=== PATIENT | male | born 1980 | race Caucasian/White ===

== ENCOUNTER → 2018-11-24 | Outpatient (CLI) | payer MEDICARE, OTHER ==
[~2018-11-24] MED LIST: BACLOFEN10 MG PO; CINNAMON500 MG PO; COLACE100 MG PO; CRANBERRY200 MG PO; DIAMOX PO; FLOMAX0.4 MG PO; GLIPIZIDE5 MG PO; JANUVIA100 MG PO; MILK OF MA2400 MG/10 PO; OXYBUTYNIN CHLOR5 MG PO; POTASSIUM CHLO10 ME1 PO; XANAX0.25 MG PO
--- NOTE | 2018-11-24 17:47 | Diagnostic Imaging Report ---
Exam: KUB. Clinical History: Calculus of kidney Comparison: None Findings: Frontal view of the abdomen demonstrates a nonobstructive bowel gas pattern with moderate retained stool. Left ureteral catheter. Numerous stones over the left kidney.No acute bone abnormality. Impression: Left ureteral catheter. Numerous stones over the left kidney Signed by: Dr. Konstantin Kimball M.D. on 11/24/2018 5:44 PM
== END ==
LOC: RAD 17:02
PROVIDERS: ATTEND Urology
DX: N20.0 Calculus of kidney (principal)
CPT/HCPCS: 74018

== ENCOUNTER → 2018-11-30 | Day surgery (SDC) | payer OTHER ==
[2018-11-28 14:45] LABS: BASOPHILS % 0.6 % (0.0-1.0); EOSINOPHILS # (AUTO) 0.1 (0.0-0.4); EOSINOPHILS % 1.4 % (0.0-6.0); HEMATOCRIT 48.9 % (38.2-49.6); HEMOGLOBIN 15.3 g/dL (14.0-18.0); LYMPHOCYTES # (AUTO) 1.6 (1.0-3.2); LYMPHOCYTES % 25.6 % (18.0-39.1); MEAN CORPUSCULAR HGB CONC 31.3 g/dL (31-35); MEAN CORPUSCULAR VOLUME 83.2 fL (81-99); MONOCYTES # (AUTO) 0.5 (0.2-0.8); MONOCYTES % 8.1 % (4.4-11.3); NEUTROPHILS # (AUTO) 4.1 (2.1-6.9); PLATELET COUNT 219 x10e3/uL (140-360); RED BLOOD COUNT 5.88 x10e6/uL (4.3-5.7); RED CELL DISTRIBUTION WIDTH 14.8 % (11.7-14.4)
[2018-11-28 15:03] LABS: ANION GAP 11.7 mmol/L (8-16); CALCIUM 9.6 mg/dL (8.4-10.2); CREATININE, SERUM 1.36 mg/dL (0.72-1.25); POTASSIUM 3.7 mmol/L (3.5-5.1)
--- NOTE | 2018-11-28 16:15 | Diagnostic Imaging Report ---
Exam: KUB-3 views Clinical History: Pre-op. Comparison: KUB 11/24/2018. Findings: Nonobstructive bowel gas pattern. Left internal ureteral stent overlying the left kidney proximally and the bladder distally. Numerous stones over the left kidney, unchanged from radiograph on 11/24/2018. The largest stone overlying the left mid kidney measures up to 1.3 cm. The largest conglomerate of stones overlying the left lower kidney measure up to 1.7 cm. Surgical clips project over the right upper quadrant. No acute osseous abnormality. Impression: Left internal ureteral stent with similar appearance of numerous left renal stones. Signed by: Dr. Radha Rivera MD on 11/28/2018 4:12 PM
[2018-11-28 20:36] LABS: PLATELET ESTIMATE ADEQUATE; PLATELET MORPHOLOGY COMMENT NORMAL; RBC MORPHOLOGY COMMENT NORMAL
[~2018-11-30] MED LIST changes: +BELLADONNA/OPIUM 60 MG SUPP PR ONE; +CEFTRIAXONE SOD 1 GM/NS 50 ML 50 ML IV ONE; +FENTANYL CITRATE/PF 100MCG/2 ML INJ ONE; +GENTAMICIN 80MG/NS 100 ML 200 ML IV ONE; +IOPAMIDOL 610MG/1ML 300 MG/ML VIAL IV ONE; +MIDAZOLAM HCL 2 MG/2 ML VIAL ONE; +ONDANSETRON HCL INJ 2MG/ML 2ML 2 MG/ML VIAL ONE; +PIPER-TAZ 3.375 GM 50 ML ONE; +SEVOFLURANE INHAL SOLN 250 ML PEN BTL ONE
--- OUTSIDE RECORDS SUMMARY | 2018-11-30 06:59 | XMS REPORT ---
[facility] Address Unknown Phone Unavailable Care Team Providers Care Custody Officer Name Role Phone YELENA GOINS Unavailable Unavailable Problems This patient has no known problems. Allergies, Adverse Reactions, Alerts This patient has no known allergies or adverse reactions. Medications This patient has no known medications. Results Test Description Test Time Test Comments Text Results Atomic Results Result Comments ABDOMEN-1VIEW (KUB) 2018-11-28 16:08:00 [place] [address] Patient Name: ILYA GANDHI MR #: [id number] : 1980 Age/Sex: 38/M Req #: [id number] Adm Physician: Ordered by: YELENA GOINS MD Report #: [id number] Location: OR Room/Bed: Procedure: [id number] DX/ABDOMEN-1VIEW (KUB) Exam Date: 11/28/18 Exam Time: 1454 REPORT STATUS: Signed Exam: KUB-3 views Clinical History: Pre-op. Comparison: KUB 11/24/2018. Findings: Nonobstructive bowel gas pattern. Left internal ureteral stent overlying the left kidney proximally and the bladder distally. Numerous stones over the left kidney, unchanged from radiograph on 11/24/2018. The largest stone overlying the left mid kidney measures up to 1.3 cm. The largest conglomerate of stones overlying the left lower kidney measure up to 1.7 cm. Surgical clips project over the right upper quadrant. No acute osseous abnormality. Impression: Left internal ureteral stent with similar appearance of numerous left renal stones. Signed by: Dr. Tello Ragsdale MD on 11/28/2018 4:12 PM Dictated By: TELLO RAGSDALE MD 11 Transcribed By: BIBIANA on 11/28/181611 COPY TO: YELENA GOINS MD ABDOMEN-1VIEW (KUB) 2018-11-24 17:43:00 [place] [address] Patient Name: ILYA GANDHI MR #: [id number] : 1980 Age/Sex: 38/M Req #: [id number] Adm Physician: Ordered by: YELENA GOINS MD Report #: [id number] Location: [facility] Room/Bed: Procedure: [id number] DX/ABDOMEN-1VIEW (KUB) Exam Date: Exam Time: REPORT STATUS: Signed Exam: KUB. Clinical History: Calculus of kidney Compariso n: None Findings: Frontal view of the abdomen demonstrates a nonobstructive bowel gas pattern with moderate retained stool. Left ureteral catheter. Numerous stones over the left kidney.No acute bone abnormality. Impression: Left ureteral catheter. Numerous stones over the left kidney Signed by: Dr. Konstantin Kimball M.D. on 11/24/2018 5:44 PM Dictated By: KONSTANTIN KIMBALL MD, MD 43 Transcribed By: BIBIANA on 11/24/181743 COPY TO: YELENA GOINS MD
[2018-11-30 13:35] VITALS: BP 105/59
--- NOTE | 2018-12-29 07:06 | Operative Report ---
DATE OF PROCEDURE: 11/30/2018 SURGEON: Edgar Dangelo MD PREOPERATIVE DIAGNOSES: 1. Left nephrolithiasis. 2. Left hydronephrosis. 3. Left indwelling ureteral stent. 4. Urinary tract infections. POSTOPERATIVE DIAGNOSES: 1. Left nephrolithiasis. 2. Left hydronephrosis. 3. Left indwelling ureteral stent. 4. Urinary tract infections. 5. Bladder stone. OPERATION PERFORMED: 1. Left-sided extracorporeal shockwave lithotripsy (separate procedure performed for left nephrolithiasis). 2. Cystourethroscopy with cystolitholapaxy (separate procedure performed for the bladder stone). 3. Cystourethroscopy with complicated removal of left indwelling ureteral stent (separate procedure performed for diagnosis of the stent). 4. Cystolitholapaxy (separate procedure performed for the cystolithiasis). 5. Cystourethroscopy with bilateral ureteral catheterization and retrograde ureteropyelography (separate procedure performed to assess the upper tracts in light of the urinary tract infections). 6. Interpretation of retrograde ureteropyelography. 7. Supervision of fluoroscopy, no radiologist present. ANESTHESIA: General. COMPLICATIONS: None. CLINICAL SUMMARY: Arturo Medina is a 38-year-old man with a chronic and indwelling ureteral stent that is retained. The patient is brought for the above procedures. He is aware of the risks of bleeding, infection, injury to adjacent structures, need for additional procedures and elected to proceed. OPERATIVE PROCEDURE IN DETAIL: Informed consent was verified. Arturo Medina was properly identified, taken to the operating room, placed on the lithotripsy table in supine position. Anesthesia was uneventfully begun. The patient's 12 mm left mid calyceal stone was localized with the above plan of fluoroscopy. Total 3000 shocks were delivered with excellent fragmentation. The patient was then carefully and gently repositioned in dorsal lithotomy position with all pressure points well padded. His genitalia were prepped and draped in usual sterile fashion. The cystoscope sheath with the visual obturator in place was atraumatically inserted in the patient's urethra was guided down the relatively unremarkable urethra through the normal prostate bed into the patient's bladder, where we identified a stent emerging from the left ureteral orifice. The stent was heavily encrusted and essentially was the seed for a bladder stone. We utilized the forceps to progressively crush this down in order to completely dislodge it. We grasped the stent and extracted it following placement of a guidewire along side of it. A ureteral catheter was used to cannulate the left ureter and retrograde ureteropyelography was performed, it was inserted in the right ureter and retrograde ureteropyelograms were performed. With cystoscopic and fluoroscopic guidance, a new left-sided indwelling ureteral stent was then placed. It was coiled in the patient's kidney as well as the patient's bladder. The retaining suture was cut short. Interpretation of retrograde ureteropyelography: Contrast was instilled in retrograde fashion bilaterally. Right side was relatively unremarkable. There were no tumors, no stones were visualized. Unobstructed drainage was observed fluoroscopically. The left hand side exhibited chronic hydronephrosis with some calyceal blunting. The new stent was in excellent position "the patient's kidney as well as the patient's bladder." The patient's bladder was drained. Cystoscope was withdrawn. Belladonna and opium suppository were placed revealing a small prostate, smooth, and non-fluctuant without any nodules. The patient was uneventfully reversed from anesthesia and taken to the recovery room in stable condition. Plans will be to follow the patient up as well as performed at a later time. Left ureteroscopy with holmium laser standby. Hopefully, we will be able to render the patient's stenting in the near future. MD FRANCISCO Mustafa/FOREST /[id number]
== END | disposition home or self-care (01) ==
LOC: OR 06:57
PROVIDERS: ATTEND Urology
DX: N20.0 Calculus of kidney (principal); N21.0 Calculus in bladder; N13.30 Unspecified hydronephrosis; Z46.6 Encounter for fitting and adjustment of urinary device; R35.1 Nocturia; N39.0 Urinary tract infection, site not specified; E11.22 Type 2 diabetes mellitus with diabetic chronic kidney disease; N18.9 Chronic kidney disease, unspecified; R56.9 Unspecified convulsions; K21.9 Gastro-esophageal reflux disease without esophagitis; F41.9 Anxiety disorder, unspecified; Z88.6 Allergy status to analgesic agent; Z88.8 Allergy status to other drugs, medicaments and biological substances; Z01.810 Encounter for preprocedural cardiovascular examination; Z01.812 Encounter for preprocedural laboratory examination; Z79.84 Long term (current) use of oral hypoglycemic drugs; Z84.1 Family history of disorders of kidney and ureter
CPT/HCPCS: 36415 ×2; 50590; 52317; 52332; 74018; 80048; 82948; 83970; 84550; 85025; 87086; 93005; C1758; C2617; J0696; J1580; J2250; J2405; J2543; Q9967

== ENCOUNTER → 2019-02-03 | Day surgery (SDC) | payer MEDICARE, OTHER ==
[2019-02-02 16:25] LABS: ANION GAP 13.2 mmol/L (8-16); BLOOD UREA NITROGEN 22 mg/dL (7-26); BUN/CREATININE RATIO 20 (6-25); CALCIUM 9.1 mg/dL (8.4-10.2); CARBON DIOXIDE 17 mmol/L (22-29); CHLORIDE 107 mmol/L (98-107); CREATININE, SERUM 1.09 mg/dL (0.72-1.25); EST GLOMERULAR FILTRATION RATE > 60 ML/MIN (60-); GLUCOSE 130 mg/dL (74-118); POTASSIUM 4.2 mmol/L (3.5-5.1); SODIUM 133 mmol/L (136-145)
--- NOTE | 2019-02-02 16:48 | Diagnostic Imaging Report ---
Exam: KUB; 2 views History: Stones Comparison: 11/28/2008 Findings: Left ureteral stent is present. There is staghorn calculus in the left kidney. There has been progression of stone formation compared to the prior study. Small stone in the upper pole is also seen on the left. Degenerative changes of both hips is present. Impression: Left staghorn calculi. Signed by: Dr. Clark Dobson DO on 02/02/2019 4:44 PM
[~2019-02-03] MED LIST changes: +ACETAMINOPHEN 1000 MG/100 ML 100 ML IV ONE; +ACETAMINOPHEN/CODEINE 300MG - 30MG TAB ONE; +B&O 60MG R/S 60 MG SUPP PR ONE; -BELLADONNA/OPIUM 60 MG SUPP PR ONE; +GENTAMICIN 80MG/NS 100 ML 100 ML IV ONE; -GENTAMICIN 80MG/NS 100 ML 200 ML IV ONE; +LIDOCAINE HCL 2% LOCAL INJ 5 ML SDV VIAL INJ ONE; +MEPERIDINE HCL INJ 25 MG/ML VIAL ONE; -PIPER-TAZ 3.375 GM 50 ML ONE; +PROPOFOL IV EMULSION 10 MG/ML 20 ML VIAL ONE; +TIZANIDINE HCL4 M1 PO; +ULTRAM50 MG PO
--- OUTSIDE RECORDS SUMMARY | 2019-02-03 09:50 | XMS REPORT | Clinical Summary ---
Author Author [facility] Organization [facility] Address Unknown Phone Unavailable Care Team Providers Care Security Installer Name Role Phone Katie Palm DO PCP Allergies Comments Active Allergy Reactions Severity Noted Date Morphine Anxiety Low 12/30/2016 Digestive system shuts down Propofol Other (See High 10/31/2016 Comments) Medications End Date Status Medication Sig Dispensed Refills Start Date Active ALPRAZolam (XANAX) 0.25 Take 0.5 mg 0 MG tablet by mouth 7 nightly. Active glipiZIDE (GLUCOTROL) 5 Take 5 mg by 0 MG tablet mouth 2 (two) times a day before meals. Active oxybutynin (DITROPAN) 5 Take 5 mg by 0 MG tablet mouth 2 (two) times a day. Active pantoprazole (PROTONIX) Take 40 mg by 0 40 MG EC tablet mouth daily before breakfast. Active tamsulosin (FLOMAX) 0.4 Take 0.4 mg 0 mg capsule,extended by mouth 2 release 24hr (two) times a day. 30 minutes after breakfast. Active cholecalciferol, vitamin Take 5,000 0 D3, (VITAMIN D3) 5,000 Units by unit tablet mouth every morning. Active montelukast (SINGULAIR) Take 10 mg by 4 10 mg tablet mouth daily 8 as needed. Active fluticasone (FLONASE) 50 1 spray by 7 mcg/actuation nasal spray Each Nare 8 route daily. Active acetaZOLAMIDE (DIAMOX Take 500 mg 0 SEQUELS) 500 mg capsule by mouth 2 (two) times a day. Active sitaGLIPtin (JANUVIA) 50 Take 50 mg by 0 MG tablet mouth daily. Active tiZANidine (ZANAFLEX) 4 Take 4 mg by 0 MG tablet mouth every 6 (six) hours as needed for muscle spasms. Active potassium chloride Take 20 mEq 0 (KLOR-CON) 20 mEq packet by mouth 2 (two) times a day. Active traMADol (ULTRAM) 50 mg Take 50 mg by 0 tablet mouth every 4 9 (four) hours as needed. Active docusate sodium (COLACE) Take 100 mg 0 100 MG capsule by mouth 2 (two) times a day. 01/27/2019 Discontinued baclofen (LIORESAL) 20 MG Take 20 mg by 0 tablet mouth 2 (two) times a day. 04/20/2018 Discontinued acetaZOLAMIDE (DIAMOX) Take 500 mg 0 500 mg capsule by mouth 2 (two) times a day. 01/27/2019 Discontinued POTASSIUM CITRATE ORAL Take 1,620 mg 0 by mouth 3 (three) times a day. PATIENT BROUGHT OWN HOME MED 01/27/2019 Discontinued acetaminophen-codeine Take 1 tablet 0 (TYLENOL WITH CODEINE #3) by mouth 300-30 mg per tablet every 4 (four) hours as needed for moderate pain. 04/16/2018 benzonatate (TESSALON) Take 1 21 capsule 0 100 MG capsule capsule (100 8 mg total) by mouth every 8 (eight) hours for 5 days. 04/18/2018 nitrofurantoin, Take 1 14 capsule 0 macrocrystal-monohydrate, capsule (100 8 (MACROBID) 100 MG capsule mg total) by mouth 2 (two) times a day for 7 days. 06/06/2018 vancomycin (VANCOCIN) 125 Take 1 112 capsule 0 MG capsule capsule (125 8 mg total) by mouth 4 (four) times a day for 28 days. 09/23/2018 L. Take 1 30 capsule 0 acidophilus,casei,rhamnos capsule by 9 us (BIO K PLUS) 50 mouth daily billion cell for 30 days. capsule,delayed release(DR/EC) capsule 09/23/2018 potassium chloride Take 1 tablet 60 tablet 0 (K-DUR) 20 MEQ CR tablet (20 mEq 9 total) by mouth 2 (two) times a day for 30 days. Active Problems Problem Noted Date Complicated UTI (urinary tract infection) 01/29/2019 Complicated urinary tract infection 01/27/2019 Intestinal malrotation 05/02/2018 Constipation 04/24/2018 SBO (small bowel obstruction) 04/21/2018 Dehydration 04/20/2018 Diarrhea of infectious origin 10/28/2017 Urinary tract infection without hematuria 10/27/2017 Seizures 04/16/2017 Overview: AT AGE 1-NONE SINCE Cerebral palsy 04/16/2017 GERD (gastroesophageal reflux disease) 04/16/2017 Colitis, acute 04/15/2017 Diabetes mellitus 01/30/2017 Hypokalemia 01/30/2017 Colitis 01/23/2017 C. 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 Transcribe Access Orders Akira Garcia MD Al-Lahiq, Maha, MD Teqwimuah, Remy, DO Dehydration (Primary Dx); Intractable vomiting with nausea, unspecified vomiting type; Right sided abdominal pain; Hypokalemia; Hyperglycemia; Physical debility; Partial small bowel obstruction (HCC); Urinary tract infection with hematuria, site unspecified; SBO (small bowel obstruction) (HCC) 08/13/2018 [facility] General Internal Medicine - Encounter 08/24/2018 08/13/2018 Travel Marcus Harris MD 05/09/2018 Anesthesia General Surgery Event Gabriel Lee MD 05/06/2018 Telephone Urology Kalpana Graff MD Al-Lahiq, Maha, MD Teqwimuah, Remy, DO Intestinal malrotation (Primary Dx); Acute cystitis without hematuria; C. difficile colitis 05/01/2018 [facility] General Internal Medicine - Encounter 05/09/2018 Arturo Maharaj MD Al-Lahiq, Maha, MD Teqwimuah, Remy, DO Dehydration (Primary Dx); C. difficile colitis; Urinary tract infection with hematuria, site unspecified 04/19/2018 [facility] General Internal Medicine - Encounter 04/25/2018 Michi Berg MD Urinary tract infection without hematuria, site unspecified (Primary Dx); Cough 04/11/2018 Emergency Emergency Medicine after 02/02/2018 Family History Medical History Relation Name Comments Diabetes Father Diabetes Mother Hyperlipidemia Mother Hypertension Mother Glaucoma Sister Sarcoidosis Sister Drug abuse Sister Relation Name Status Comments Father Mother Alive Sister Alive Sister Alive Social History Date Tobacco Use Types Packs/Day Years Used Never Smoker Smokeless Tobacco: Never Used Alcohol Use Drinks/Week oz/Week Comments Defer Sex Assigned at Date Recorded Not on file Industry Job Start Date Occupation Not on file Not on file Not on file Travel End Travel History Travel Start No recent travel history available. Last Filed Vital Signs Time Taken Vital Sign Reading 01/30/2019 3:16 PM CDT Blood Pressure 112/57 01/30/2019 3:16 PM CDT Pulse 81 01/30/2019 3:16 PM CDT Temperature 36.9 C (98.5 F) 01/30/2019 3:16 PM CDT Respiratory Rate 19 01/30/2019 3:16 PM CDT Oxygen Saturation 94% - Inhaled Oxygen - Concentration 01/28/2019 2:10 AM CDT Weight 65.8 kg (145 lb) 01/28/2019 2:10 AM CDT Height 154.9 cm (5' 1") 01/28/2019 2:10 AM CDT Body Mass Index 27.4 Plan of Treatment Health Maintenance Due Date Last Done Comments DIABETIC RETINAL EYE EXAM 1978 DIABETIC FOOT EXAM 1988 URINE MICROALBUMIN 1988 INFLUENZA VACCINE 03/23/2019 Implants Device Identifier Shelf Expiration Date Model / Serial / Lot Implanted Type Area Manufactur [id number] / / Catheter Uretl 5fr 70cm Opn-End Cardiovasc Left: Ureter, COOK Flx-Tp Std - [id number] ular [employer] UROLOGICAL Implanted: Qty: 1 on 11/03/2016 by Implants DeseanLuis Daniel MD Stent-10/21/2016 Stent Urethra Implanted: 10/21/2016 (Quantity not on file) 07/24/2019 [facility] 626 R / / [id number] Stent Uretl Unvrsa 6fr 26cm Urological Left: Ureter, COOK Hydrphlc W/O Gw - [id number] Implants [employer] UROLOGICAL Implanted: Qty: 1 on 11/03/2016 by or Sets Desean, Luis Daniel Morris MD Procedures Comments Procedure Name Priority Date/Time Associated Diagnosis POC GLUCOSE Routine 01/30/2019 4:25 PM CDT POC GLUCOSE Routine 01/30/2019 11:19 AM CDT POC GLUCOSE Routine 01/30/2019 5:49 AM CDT LACTIC ACID LEVEL Routine 01/30/2019 5:02 AM CDT ESTIMATED GFR Routine 01/30/2019 5:02 AM CDT BASIC METABOLIC PANEL Routine 01/30/2019 5:02 AM CDT HC COMPLETE BLD COUNT Routine 01/30/2019 W/AUTO DIFF 5:02 AM CDT POC GLUCOSE Routine 01/29/2019 8:28 PM CDT POC GLUCOSE Routine 01/29/2019 5:[address] RENAL STONE PROTOCOL Routine 01/29/2019 4:58 PM CDT POC GLUCOSE Routine 01/29/2019 11:45 AM CDT POC GLUCOSE Routine 01/29/2019 5:34 AM CDT POC GLUCOSE Routine 01/28/2019 8:27 PM CDT POC GLUCOSE Routine 01/28/2019 4:29 PM CDT POC GLUCOSE Routine 01/28/2019 10:08 AM CDT SMEAR REVIEW Routine 01/28/2019 6:50 AM CDT ESTIMATED GFR Routine 01/28/2019 6:50 AM CDT COMPREHENSIVE METABOLIC Routine 01/28/2019 PANEL 6:50 AM CDT HC COMPLETE BLD COUNT Routine 01/28/2019 W/AUTO DIFF 6:50 AM CDT LACTIC ACID LEVEL, SEPSIS Timed 01/28/2019 - NOW AND REPEAT 2X EVERY 6:50 AM CDT 3 HOURS POC GLUCOSE Routine 01/28/2019 5:37 AM CDT LACTIC ACID LEVEL, SEPSIS Timed 01/28/2019 - NOW AND REPEAT 2X EVERY 2:35 AM CDT 3 HOURS POC GLUCOSE Routine 01/27/2019 11:55 PM CDT GRAM STAIN STAT 01/27/2019 9:44 PM CDT URINE CULTURE STAT 01/27/2019 9:44 PM CDT SMEAR REVIEW STAT 01/27/2019 9:30 PM CDT ESTIMATED GFR STAT 01/27/2019 9:30 PM CDT LACTIC ACID LEVEL, SEPSIS Timed 01/27/2019 - NOW AND REPEAT 2X EVERY 9:30 PM CDT 3 HOURS URINALYSIS SCREEN AND STAT 01/27/2019 MICROSCOPY, WITH REFLEX 9:30 PM CDT TO CULTURE COMPREHENSIVE METABOLIC STAT 01/27/2019 PANEL 9:30 PM CDT PARTIAL THROMBOPLASTIN STAT 01/27/2019 TIME (PTT) 9:30 PM CDT PROTHROMBIN TIME WITH INR STAT 01/27/2019 9:30 PM CDT HC COMPLETE BLD COUNT STAT 01/27/2019 W/AUTO DIFF 9:30 PM CDT XR CHEST 1 VW PORTABLE STAT 01/27/2019 8:53 PM CDT POC GLUCOSE Routine 08/24/2018 11:59 AM GRADER MARKER POC GLUCOSE Routine 08/24/2018 6:27 AM GRADER MARKER ESTIMATED GFR Routine 08/24/2018 4:52 AM GRADER MARKER RENAL FUNCTION PANEL Routine 08/24/2018 4:52 AM GRADER MARKER POC GLUCOSE Routine 08/23/2018 7:36 PM GRADER MARKER POC GLUCOSE Routine 08/23/2018 4:27 PM GRADER MARKER POC GLUCOSE Routine 08/23/2018 11:31 AM GRADER MARKER POC GLUCOSE Routine 08/23/2018 5:42 AM GRADER MARKER ESTIMATED GFR Routine 08/23/2018 5:30 AM GRADER MARKER BASIC METABOLIC PANEL Routine 08/23/2018 5:30 AM GRADER MARKER HC COMPLETE BLD COUNT Routine 08/23/2018 W/AUTO DIFF 5:30 AM GRADER MARKER POC GLUCOSE Routine 08/22/2018 7:50 PM GRADER MARKER POC GLUCOSE Routine 08/22/2018 4:38 PM GRADER MARKER POC GLUCOSE Routine 08/22/2018 12:23 PM GRADER MARKER POC GLUCOSE Routine 08/22/2018 5:57 AM GRADER MARKER POC GLUCOSE Routine 08/21/2018 7:35 PM GRADER MARKER POC GLUCOSE Routine 08/21/2018 4:29 PM GRADER MARKER POTASSIUM LEVEL Routine 08/21/2018 3:03 PM GRADER MARKER POC GLUCOSE Routine 08/21/2018 11:03 AM GRADER MARKER ESTIMATED GFR Routine 08/21/2018 6:42 AM GRADER MARKER BASIC METABOLIC PANEL Routine 08/21/2018 6:42 AM GRADER MARKER POC GLUCOSE Routine 08/21/2018 6:03 AM GRADER MARKER POC GLUCOSE Routine 08/20/2018 7:45 PM GRADER MARKER POC GLUCOSE Routine 08/20/2018 4:38 PM GRADER MARKER POC GLUCOSE Routine 08/20/2018 11:35 AM GRADER MARKER POC GLUCOSE Routine 08/20/2018 5:34 AM GRADER MARKER ESTIMATED GFR Routine 08/20/2018 4:55 AM GRADER MARKER BASIC METABOLIC PANEL Routine 08/20/2018 4:55 AM GRADER MARKER POC GLUCOSE Routine 08/19/2018 8:12 PM GRADER MARKER POC GLUCOSE Routine 08/19/2018 5:24 PM GRADER MARKER CLOSTRIDIUM DIFFICILE Routine 08/19/2018 TOXIN 12:23 PM GRADER MARKER POC GLUCOSE Routine 08/19/2018 11:06 AM GRADER MARKER POC GLUCOSE Routine 08/19/2018 5:31 AM GRADER MARKER ESTIMATED GFR Routine 08/19/2018 4:15 AM GRADER MARKER BASIC METABOLIC PANEL Routine 08/19/2018 4:15 AM GRADER MARKER POC GLUCOSE Routine 08/18/2018 10:46 PM GRADER MARKER FL SMALL BOWEL Routine 08/18/2018 10:45 PM GRADER MARKER POC GLUCOSE Routine 08/18/2018 4:34 PM GRADER MARKER POC GLUCOSE Routine 08/18/2018 11:30 AM GRADER MARKER POC GLUCOSE Routine 08/18/2018 5:55 AM GRADER MARKER ESTIMATED GFR Routine 08/18/2018 5:16 AM GRADER MARKER MAGNESIUM LEVEL Routine 08/18/2018 5:16 AM GRADER MARKER PHOSPHORUS LEVEL Routine 08/18/2018 5:16 AM GRADER MARKER COMPREHENSIVE METABOLIC Routine 08/18/2018 PANEL 5:16 AM GRADER MARKER HC COMPLETE BLD COUNT Routine 08/18/2018 W/AUTO DIFF 5:16 AM GRADER MARKER POC GLUCOSE Routine 08/17/2018 7:44 PM GRADER MARKER POC GLUCOSE Routine 08/17/2018 5:17 PM GRADER MARKER POC GLUCOSE Routine 08/17/2018 11:49 AM GRADER MARKER POC GLUCOSE Routine 08/17/2018 6:03 AM GRADER MARKER POC GLUCOSE Routine 08/16/2018 7:34 PM GRADER MARKER POC GLUCOSE Routine 08/16/2018 5:19 PM GRADER MARKER XR ABDOMEN 1 VW PORTABLE STAT 08/16/2018 1:57 PM GRADER MARKER POC GLUCOSE Routine 08/16/2018 11:19 AM GRADER MARKER ESTIMATED GFR Routine 08/16/2018 7:20 AM GRADER MARKER BASIC METABOLIC PANEL Routine 08/16/2018 7:20 AM GRADER MARKER HC COMPLETE BLD COUNT Routine 08/16/2018 W/AUTO DIFF 7:20 AM GRADER MARKER POC GLUCOSE Routine 08/16/2018 7:05 AM GRADER MARKER POC GLUCOSE Routine 08/16/2018 5:57 AM GRADER MARKER POC GLUCOSE Routine 08/16/2018 12:12 AM GRADER MARKER POC GLUCOSE Routine 08/15/2018 6:30 PM GRADER MARKER ESTIMATED GFR Routine 08/15/2018 3:55 PM GRADER MARKER COMPREHENSIVE METABOLIC Routine 08/15/2018 PANEL 3:55 PM GRADER MARKER POC GLUCOSE Routine 08/15/2018 11:34 AM GRADER MARKER XR ABDOMEN 1 VW STAT 08/15/2018 6:10 AM GRADER MARKER POC GLUCOSE Routine 08/15/2018 5:59 AM GRADER MARKER POC GLUCOSE Routine 08/15/2018 1:18 AM GRADER MARKER POC GLUCOSE Routine 08/14/2018 6:29 PM GRADER MARKER XR CHEST 1 VW PORTABLE STAT 08/14/2018 1:55 PM GRADER MARKER POC GLUCOSE Routine 08/14/2018 12:57 PM GRADER MARKER LACTIC ACID LEVEL, SEPSIS Timed 08/14/2018 - NOW AND REPEAT 2X EVERY 11:00 AM GRADER MARKER 3 HOURS BLOOD CULTURE, AEROBIC & Routine 08/14/2018 ANAEROBIC 11:00 AM GRADER MARKER OCCULT BLOOD, GASTRIC Routine 08/14/2018 10:00 AM GRADER MARKER BLOOD CULTURE, AEROBIC & Routine 08/14/2018 ANAEROBIC 7:45 AM GRADER MARKER LACTIC ACID LEVEL, SEPSIS Timed 08/14/2018 - NOW AND REPEAT 2X EVERY 7:20 AM GRADER MARKER 3 HOURS ESTIMATED GFR Routine 08/14/2018 6:06 AM GRADER MARKER COMPREHENSIVE METABOLIC Routine 08/14/2018 PANEL 6:06 AM GRADER MARKER HC COMPLETE BLD COUNT Routine 08/14/2018 W/AUTO DIFF 6:06 AM GRADER MARKER LACTIC ACID LEVEL, SEPSIS Timed 08/14/2018 - NOW AND REPEAT 2X EVERY 1:16 AM GRADER MARKER 3 HOURS BLOOD CULTURE, AEROBIC & Routine 08/14/2018 ANAEROBIC 1:16 AM GRADER MARKER RESPIRATORY PATHOGEN Routine 08/14/2018 PANEL 12:37 AM GRADER MARKER INFLUENZA ANTIGEN TEST, Routine 08/14/2018 REFLEX NEGATIVE TO RPP 12:37 AM GRADER MARKER ECG 12-LEAD STAT 08/14/2018 12:06 AM GRADER MARKER B NATRIURETIC PEPTIDE Routine 08/14/2018 12:00 AM GRADER MARKER HC COMPLETE BLD COUNT Routine 08/14/2018 W/AUTO DIFF 12:00 AM GRADER MARKER PROTHROMBIN TIME WITH INR Routine 08/14/2018 12:00 AM GRADER MARKER PARTIAL THROMBOPLASTIN Routine 08/14/2018 TIME (PTT) 12:00 AM GRADER MARKER ESTIMATED GFR STAT 08/13/2018 11:38 PM GRADER MARKER CREATINE KINASE, TOTAL STAT 08/13/2018 (CPK) 11:38 PM GRADER MARKER TROPONIN STAT 08/13/2018 11:38 PM GRADER MARKER LIPASE LEVEL STAT 08/13/2018 11:38 PM GRADER MARKER MAGNESIUM LEVEL STAT 08/13/2018 11:38 PM GRADER MARKER PHOSPHORUS LEVEL STAT 08/13/2018 11:38 PM GRADER MARKER COMPREHENSIVE METABOLIC STAT 08/13/2018 PANEL 11:38 PM GRADER MARKER GRAM STAIN STAT 08/13/2018 11:38 PM GRADER MARKER URINE CULTURE STAT 08/13/2018 11:38 PM GRADER MARKER URINALYSIS SCREEN AND STAT 08/13/2018 MICROSCOPY, WITH REFLEX 11:14 PM GRADER MARKER TO CULTURE CT ABDOMEN PELVIS WO STAT 08/13/2018 CONTRAST 10:44 PM GRADER MARKER XR CHEST 1 VW PORTABLE STAT 08/13/2018 10:23 PM GRADER MARKER ECG ED PRELIMINARY Routine 08/13/2018 INTERPRETATION 9:46 PM GRADER MARKER ID CRITICAL CARE, E/M Routine 08/13/2018 30-74 MINUTES 9:46 PM GRADER MARKER POC GLUCOSE Routine 05/09/2018 8:51 PM CDT POC GLUCOSE Routine 05/09/2018 5:07 PM CDT POC GLUCOSE Routine 05/09/2018 12:16 PM CDT PROTHROMBIN TIME WITH INR Routine 05/09/2018 6:15 AM CDT PARTIAL THROMBOPLASTIN Routine 05/09/2018 TIME (PTT) 6:15 AM CDT ESTIMATED GFR Routine 05/09/2018 6:15 AM CDT BASIC METABOLIC PANEL Routine 05/09/2018 6:15 AM CDT POC GLUCOSE Routine 05/09/2018 5:57 AM CDT POC GLUCOSE Routine 05/08/2018 8:22 PM CDT POC GLUCOSE Routine 05/08/2018 4:28 PM CDT POC GLUCOSE Routine 05/08/2018 11:17 AM CDT POC GLUCOSE Routine 05/08/2018 5:18 AM CDT MAGNESIUM LEVEL STAT 05/08/2018 5:10 AM CDT ESTIMATED GFR Routine 05/08/2018 5:01 AM CDT BASIC METABOLIC PANEL Routine 05/08/2018 5:01 AM CDT POC GLUCOSE Routine 05/07/2018 7:56 PM CDT POC GLUCOSE Routine 05/07/2018 4:19 PM CDT POC GLUCOSE Routine 05/07/2018 11:59 AM CDT ESTIMATED GFR Routine 05/07/2018 10:19 AM CDT BASIC METABOLIC PANEL Routine 05/07/2018 10:19 AM CDT POC GLUCOSE Routine 05/07/2018 5:41 AM CDT POC GLUCOSE Routine 05/06/2018 7:56 PM CDT POC GLUCOSE Routine 05/06/2018 4:25 PM CDT PARTIAL THROMBOPLASTIN STAT 05/06/2018 TIME (PTT) 2:50 PM CDT PROTHROMBIN TIME WITH INR STAT 05/06/2018 2:50 PM CDT POC GLUCOSE Routine 05/06/2018 11:06 AM CDT POC GLUCOSE Routine 05/06/2018 5:20 AM CDT ESTIMATED GFR Routine 05/06/2018 4:23 AM CDT HC COMPLETE BLD COUNT Routine 05/06/2018 W/AUTO DIFF 4:23 AM CDT BASIC METABOLIC PANEL Routine 05/06/2018 4:23 AM CDT POC GLUCOSE Routine 05/05/2018 8:40 PM CDT POC GLUCOSE Routine 05/05/2018 4:13 PM CDT POC GLUCOSE Routine 05/05/2018 11:04 AM CDT POC GLUCOSE Routine 05/05/2018 5:07 AM CDT POC GLUCOSE Routine 05/04/2018 7:50 PM CDT POC GLUCOSE Routine 05/04/2018 4:07 PM CDT POC GLUCOSE Routine 05/04/2018 11:04 AM CDT POC GLUCOSE Routine 05/04/2018 5:42 AM CDT MAGNESIUM LEVEL Routine 05/04/2018 4:45 AM CDT ESTIMATED GFR Routine 05/04/2018 4:45 AM CDT HC COMPLETE BLD COUNT Routine 05/04/2018 W/AUTO DIFF 4:45 AM CDT BASIC METABOLIC PANEL Routine 05/04/2018 4:45 AM CDT CLOSTRIDIUM DIFFICILE Routine 05/04/2018 TOXIN 4:25 AM CDT OCCULT BLOOD, STOOL Routine 05/04/2018 4:[address] ABDOMEN PELVIS W Routine 05/03/2018 CONTRAST 10:55 PM CDT POC GLUCOSE Routine 05/03/2018 7:43 PM CDT POC GLUCOSE Routine 05/03/2018 4:09 PM CDT POC GLUCOSE Routine 05/03/2018 11:09 AM CDT POC GLUCOSE Routine 05/03/2018 5:43 AM CDT POC GLUCOSE Routine 05/02/2018 7:48 PM CDT POC GLUCOSE Routine 05/02/2018 4:23 PM CDT LACTIC ACID LEVEL Routine 05/02/2018 2:40 PM CDT POC GLUCOSE Routine 05/02/2018 11:47 AM CDT POC GLUCOSE Routine 05/02/2018 8:[address] ABDOMEN PELVIS WO STAT 05/02/2018 CONTRAST 12:46 AM CDT URINALYSIS SCREEN AND STAT 05/02/2018 MICROSCOPY, WITH REFLEX 12:00 AM CDT TO CULTURE GRAM STAIN STAT 05/02/2018 12:00 AM CDT URINE CULTURE STAT 05/02/2018 12:00 AM CDT ZZESTIMATED GFR STAT 05/01/2018 11:10 PM CDT LIPASE LEVEL STAT 05/01/2018 11:10 PM CDT AMYLASE LEVEL STAT 05/01/2018 11:10 PM CDT COMPREHENSIVE METABOLIC STAT 05/01/2018 PANEL 11:10 PM CDT HC COMPLETE BLD COUNT STAT 05/01/2018 W/AUTO DIFF 11:10 PM CDT ECG 12-LEAD Routine 05/01/2018 10:38 PM CDT ECG ED PRELIMINARY Routine 05/01/2018 INTERPRETATION 10:26 PM CDT POC GLUCOSE Routine 04/25/2018 8:14 PM CDT POC GLUCOSE Routine 04/25/2018 4:21 PM CDT POC GLUCOSE Routine 04/25/2018 11:23 AM CDT ZZESTIMATED GFR STAT 04/25/2018 11:17 AM CDT COMPREHENSIVE METABOLIC STAT 04/25/2018 PANEL 11:17 AM CDT HC COMPLETE BLD COUNT STAT 04/25/2018 W/AUTO DIFF 11:17 AM CDT POC GLUCOSE Routine 04/25/2018 5:44 AM CDT POTASSIUM LEVEL Routine 04/24/2018 11:30 PM CDT POC GLUCOSE Routine 04/24/2018 8:03 PM CDT POC GLUCOSE Routine 04/24/2018 4:57 PM CDT POC GLUCOSE Routine 04/24/2018 11:22 AM CDT POC GLUCOSE Routine 04/24/2018 6:10 AM CDT ZZESTIMATED GFR Routine 04/24/2018 4:34 AM CDT HC COMPLETE BLD COUNT Routine 04/24/2018 W/AUTO DIFF 4:34 AM CDT BASIC METABOLIC PANEL Routine 04/24/2018 4:34 AM CDT POC GLUCOSE Routine 04/23/2018 7:50 PM CDT POC GLUCOSE Routine 04/23/2018 6:27 PM CDT XR ABDOMEN 1 VW Routine 04/23/2018 5:20 PM CDT POC GLUCOSE Routine 04/23/2018 11:37 AM CDT POC GLUCOSE Routine 04/23/2018 5:51 AM CDT POC GLUCOSE Routine 04/22/2018 8:24 PM CDT NM RENAL SCAN WFLOW FUNCT STAT 04/22/2018 SGL INT W/MAG 3 8:03 PM CDT POC GLUCOSE Routine 04/22/2018 4:47 PM CDT POC GLUCOSE Routine 04/22/2018 11:25 AM CDT POC GLUCOSE Routine 04/22/2018 5:49 AM CDT ZZESTIMATED GFR Routine 04/22/2018 4:30 AM CDT HC COMPLETE BLD COUNT Routine 04/22/2018 W/AUTO DIFF 4:30 AM CDT BASIC METABOLIC PANEL Routine 04/22/2018 4:30 AM CDT POC GLUCOSE Routine 04/21/2018 8:21 PM CDT POC GLUCOSE Routine 04/21/2018 4:32 PM CDT POC GLUCOSE Routine 04/21/2018 11:56 AM CDT XR ABDOMEN 1 VW Routine 04/21/2018 10:30 AM CDT ZZESTIMATED GFR Routine 04/21/2018 8:16 AM CDT HC COMPLETE BLD COUNT STAT 04/21/2018 W/AUTO DIFF 8:16 AM CDT BASIC METABOLIC PANEL Routine 04/21/2018 8:16 AM CDT POC GLUCOSE Routine 04/21/2018 5:26 AM CDT POC GLUCOSE Routine 04/20/2018 10:08 PM CDT POC GLUCOSE Routine 04/20/2018 4:13 PM CDT POC GLUCOSE Routine 04/20/2018 11:[address] ABDOMEN PELVIS WO STAT 04/20/2018 CONTRAST 5:17 AM CDT URINALYSIS SCREEN AND STAT 04/20/2018 MICROSCOPY, WITH REFLEX 2:30 AM CDT TO CULTURE URINE CULTURE STAT 04/20/2018 2:30 AM CDT GRAM STAIN STAT 04/20/2018 2:30 AM CDT CLOSTRIDIUM DIFFICILE Routine 04/20/2018 TOXIN 12:31 AM CDT ZZESTIMATED GFR STAT 04/19/2018 11:38 PM CDT CREATINE KINASE, TOTAL STAT 04/19/2018 (CPK) 11:38 PM CDT LIPASE LEVEL STAT 04/19/2018 11:38 PM CDT HEPATIC FUNCTION PANEL STAT 04/19/2018 11:38 PM CDT BASIC METABOLIC PANEL STAT 04/19/2018 11:38 PM CDT HC COMPLETE BLD COUNT STAT 04/19/2018 W/AUTO DIFF 11:38 PM CDT XR CHEST 1 VW PORTABLE STAT 04/11/2018 3:55 AM CDT URINALYSIS SCREEN AND Routine 04/11/2018 MICROSCOPY, WITH REFLEX 3:09 AM CDT TO CULTURE GRAM STAIN Routine 04/11/2018 3:09 AM CDT URINE CULTURE Routine 04/11/2018 3:09 AM CDT after 02/02/2018 Results * POC glucose (01/30/2019 4:25 PM CDT) Only the most recent of 109 results within the time period is included. POC glucose 126 (H) 65 - 99 mg/dL [place] Comment: [employer] CLEAR Meter ID: [id number] [facility] [place] Career Development Specialist: Mango Gifford Specimen Performing Organization Address City/State/Zipcode Phone Number [facility] DEPARTMENT OF [address] [place] [address] [place] [address] [facility] [address] [place] * Estimated GFR (01/30/2019 5:02 AM CDT) Only the most recent of 18 results within the time period is included. [facility] Estimated GFR 75 mL/min/1.73 m2 [place] Comment: [facility] rpretation G1 >=90 Normal or high G2 60-89Mildly decreased [id number] Mildly to moderately decreased [id number] Moderately to severely decreased G4 15-29Severely decreased G5 <15Kidney failure The eGFR was calculated using the Chronic Kidney Disease Epidemiology Collaboration (CKD-EPI) equation. Interpretation is based on recommendations of the National Kidney Foundation-Kidney Disease Outcomes Quality Initiative (NKF-KDOQI) published in 2014. Specimen Plasma specimen Performing Organization Address City/State/Zipcode Phone Number [facility] DEPARTMENT OF [address] [place] [address] [place] [address] [facility] [id number] [place] [address] * CBC with platelet and differential (01/30/2019 5:02 AM CDT) Only the most recent of 16 results within the time period is included. [facility] WBC 5.05 4.50 - 11.00 k/uL [facility] RBC 5.31 4.40 - 6.00 m/uL [facility] HGB 13.4 (L) 14.0 - 18.0 g/dL [facility] HCT 44.5 41.0 - 51.0 % [facility] MCV 83.8 82.0 - 100.0 fL [facility] MCH 25.2 (L) 27.0 - 34.0 pg [facility] MCHC 30.1 (L) 31.0 - 37.0 g/dL [facility] RDW - SD 45.8 37.0 - 55.0 fL [facility] MPV 9.7 8.8 - 13.2 fL [facility] Platelet count 145 (L) 150 - 400 k/uL [facility] Nucleated RBC 0.00 /100 WBC [facility] Neutrophils 49.7 39.0 - 69.0 % [facility] Lymphocytes 39.2 25.0 - 45.0 % [facility] Monocytes 7.1 0.0 - 10.0 % [facility] Eosinophils 3.4 0.0 - 5.0 % [facility] Basophils 0.4 0.0 - 1.0 % [facility] Specimen Blood Performing Organization Address City/[facility] Phone Number [address] [place] [address] PATHOLOGY AND GENOMIC MEDICINE [address] * Lactic acid level (01/30/2019 5:02 AM CDT) Only the most recent of 2 results within the time period is included. Pathologist [facility] Lactic acid 0.8 0.5 - 2.2 mmol/L [facility] Specimen Plasma specimen Performing Organization Address [facility] Phone Number [facility] DEPARTMENT [address] [place] [address] PATHOLOGY AND GENOMIC MEDICINE [address] [place] [id number] [facility] * Basic metabolic panel (01/30/2019 5:02 AM CDT) Only the most recent of 15 results within the time period is included. Sodium 142 135 - 148 mEq/L [facility] Potassium 3.5 3.5 - 5.0 mEq/L [facility] Chloride 114 (H) 98 - 112 mEq/L [facility] CO2 18 (L) 24 - 31 mEq/L [facility] Anion gap 10@ANIO 7 - 15 mEq/L [facility] BUN 13 6 - 20 mg/dL [facility] Creatinine 1.20 0.70 - 1.20 mg/dL [facility] Glucose 92 65 - 99 mg/dL [facility] Calcium 8.8 8.3 - 10.2 mg/dL [facility] Specimen Plasma specimen Performing Organization Address [facility] Phone Number [facility] DEPARTMENT [address] [place] [address] PATHOLOGY AND GENOMIC MEDICINE [place] CONFUCIANISM CLEAR [address] [place] [address] [facility] * CT Renal Stone Protocol (01/29/2019 4:58 PM CDT) Specimen Narrative Performed At EXAMINATION:CT RENAL [facility]OL [facility] CL[facility]ICAL HISTORY:stone protocol TECHNIQUE: Multiple axial images of the abdomen and pelvis were obtained without intravenous administration of iodinated contrast. Sagittal and coronal computerized reformatted images were also obtained. The lack of intravenous contrast reduces the sensitivity of detecting solid organ disease. CT imaging was performed with iterative reconstruction techniques and/or automated exposure control to reduce radiation dose. COMPARISON:August 13, 2018 CT scan FINDINGS: Abdomen: 1. There is a left ureteral stent. There is still dilatation of the renal pelvis on the left side similar to the prior study. There is also some calcification in posterior calyces on the left. 2.Few small scattered calyceal calculi on the right do not cause any obstruction. No ureteral calculus on the right side. 3.There has been a cholecystectomy. 4.No focal lesions are seen in the liver, spleen, pancreas, or adrenal glands. 5.The abdominal aorta is of normal caliber. Pelvis: Left ureteral stent extends into the urinary bladder. There is also a small calculus in the posterior aspect of the urinary bladder on the left as well as some calcification encrustation along the coiled portion of the stent. There is left inguinal hernia containing fat. No pelvic sidewall mass or adenopathy is seen. IMPRESSION: [Ureteral stent with moderate dilatation of left renal pelvis similar to the prior study. Calculi within the calyces of both kidneys more numerous and larger on the left. [facility]-[id number] Procedure Note Interface, Radiology Results [facility] - 01/29/2019 8:23 PM CDT EXAMINATION: CT RENAL STONE PROTOCOL CLINICAL HISTORY: stone protocol TECHNIQUE: Multiple axial images of the abdomen and pelvis were obtained without intravenous administration of iodinated contrast. Sagittal and coronal computerized reformatted images were also obtained. The lack of intravenous contrast reduces the sensitivity of detecting solid organ disease. CT imaging was performed with iterative reconstruction techniques and/or automated exposure control to reduce radiation dose. COMPARISON: August 13, 2018 CT scan FINDINGS: Abdomen: 1. There is a left ureteral stent. There is still dilatation of the renal pelvis on the left side similar to the prior study. There is also some calcification in posterior calyces on the left. 2. Few small scattered calyceal calculi on the right do not cause any obstruction. No ureteral calculus on the right side. 3. There has been a cholecystectomy. 4. No focal lesions are seen in the liver, spleen, pancreas, or adrenal glands. 5. The abdominal aorta is of normal caliber. Pelvis: Left ureteral stent extends into the urinary bladder. There is also a small calculus in the posterior aspect of the urinary bladder on the left as well as some calcification encrustation along the coiled portion of the stent. There is left inguinal hernia containing fat. No pelvic sidewall mass or adenopathy is seen. IMPRESSION: [Ureteral stent with moderate dilatation of left renal pelvis similar to the prior study. Calculi within the calyces of both kidneys more numerous and larger on the left. [facility]-[id number] Performing Organization Address City/[facility]/Zipcode Phone Number [facility] [address] [place] [address] * Smear review (01/28/2019 6:50 AM CDT) Only the most recent of 2 results within the time period is included. Platelet slide Ted adequate [facility] Anisocytosis Few [facility] Polychromasia Rare [facility] Ovalocytes Few [facility] Specimen Performing Organization Address City/[facility] Phone Number [facility] DEPARTMENT [address] [place] [address] PATHOLOGY AND GENOMIC MEDICINE [address] * Lactic acid level, SEPSIS - Now and repeat 2x every 3 hours (01/28/2019 6:50 AM CDT) Only the most recent of 6 results within the time period is included. Lactic acid 1.7 0.5 - 2.2 mmol/L [facility] Specimen Plasma specimen Performing Organization Address City/[facility] Phone Number [facility] DEPARTMENT [address] [place] [phone] PATHOLOGY AND GENOMIC MEDICINE [address] * Comprehensive metabolic panel (01/28/2019 6:50 AM CDT) Only the most recent of 8 results within the time period is included. Sodium 142 135 - 148 mEq/L [facility] Potassium 3.9 3.5 - 5.0 mEq/L [facility] Chloride 114 (H) 98 - 112 mEq/L [facility] CO2 15 (L) 24 - 31 mEq/L [facility] Anion gap 13@ANIO 7 - 15 mEq/L [facility] BUN 15 6 - 20 mg/dL [facility] Creatinine 1.20 0.70 - 1.20 mg/dL [facility] Glucose 153 (H) 65 - 99 mg/dL [facility] Calcium 9.5 8.3 - 10.2 mg/dL [facility] Protein 6.6 6.3 - 8.3 g/dL [place] Comment: [facility] 4.6-7.0 g/dL 1 week 4.4-7.6 g/dL 7 months-1year 5.1-7.3 g/dL 1-2 years5.6-7 .5 g/dL >3 years6.0-8 .0 g/dL 18-150 6.3-8.3 g/dL Albumin 3.7 3.5 - 5.0 g/dL [facility] A/G ratio 1.3 0.7 - 3.8 [facility] Alkaline 89 40 - 129 U/L [place] phosphatase [facility] AST 13 10 - 50 U/L [facility] ALT 12 5 - 50 U/L [facility] Total bilirubin <0.2 0.0 - 1.2 mg/dL [facility] Specimen Plasma specimen Performing Organization Address City/State/Zipcode [place] [address] [place] [address] PATHOLOGY AND GENOMIC MEDICINE [facility] [address] [place] [phone] [facility] * Gram stain (01/27/2019 9:44 PM CDT) Only the most recent of 5 results within the time period is included. Gram stain No WBC's or organisms seen. [place] result Comment: CONFUCIANISM Specimen Information HOSPITAL Specimen Source: Urine Specimen Site: Clean catch Specimen Urine Performing Organization Address City/[facility]/Zipcode Phone Number [facility] DEPARTMENT OF [address] [place] [id number] PATHOLOGY AND GENOMIC MEDICINE [address] [address] HOSPITAL * Urine culture (01/27/2019 9:44 PM CDT) Only the most recent of 5 results within the time period is included. Urine culture Mixed kassidy <=10-3 col/cc [place] isolate Comment: CONFUCIANISM Specimen Information HOSPITAL Specimen Source: Urine Specimen Site: Clean catch Specimen Urine Performing Organization Address City/[facility] Phone Number [facility] DEPARTMENT OF [address] [place] [id number] PATHOLOGY AND GENOMIC MEDICINE [phone] [place] [address] * Urinalysis screen and microscopy, with reflex to culture (01/27/2019 9:30 PM CDT) Only the most recent of 5 results within the time period is included. Specimen site Clean catch [facility] Color, UA Yellow [facility] Appearance, UA Cloudy [facility] Specific 1.010 1.001 - 1.035 [place] gravity, UA [facility] pH, UA 8.0 5.0 - 8.5 [facility] Protein, UA Negative Negative [facility] Glucose, UA Negative Negative [facility] Ketones, UA Negative Negative [facility] Bilirubin, UA Negative Negative [facility] Blood, UA Moderate (A) Negative [facility] Nitrite, UA Negative Negative [facility] Urobilinogen, Negative <2.0 [facility] Leukocyte Moderate (A) Negative [place] esterase, UA [facility] Epithelial Moderate Few /HPF [place] cells, UA [facility] Round Few 0 - 1 /HPF [place] epithelial [facility] cells, [facility] WBC, UA 11-20 (H) 0 - 1 /HPF [facility] RBC, UA 21-40 (H) 0 - 5 /HPF [facility] Bacteria, UA Few None seen [facility] Yeast, UA None seen [facility] Yeast with None seen [place] pseudohyphae, CONFUCIANISM CLEAR [facility] Amorphous Moderate [place] crystals [facility] Specimen Urine Performing Organization Address [facility] Phone Number [facility] DEPARTMENT OF [address] [place], [place] [address] * Partial thromboplastin time, activated (01/27/2019 9:30 PM CDT) Only the most recent of 4 results within the time period is included. PTT 29.8 23.0 - 36.0 sec [place] Comment: [facility] PTT therapeutic range for [facility] unfractionated heparin is 61.0-112.0 seconds which corresponds to Anti-Xa 0.3-0.7 U/ml. Specimen Blood Performing Organization Address [facility] Phone Number [facility] DEPARTMENT OF [facility] [address] * Prothrombin time with INR (01/27/2019 9:30 PM CDT) Only the most recent of 4 results within the time period is included. Prothrombin 13.3 11.5 - 14.5 sec [facility] INR 1.0 [place] Comment: [facility] The International Normalized [facility] Ratio (INR) is a therapeutic monitoring tool for patients who are stable on oral anticoagulant therapy. An INR of 2.0-3.0 is suggested for deep vein thrombosis/pulmonary embolism. Specimen Blood Performing Organization Address [facility] Phone Number [facility] DEPARTMENT OF [address] [place], [place] [address] [place] [address] [address] [facility] [address] * XR Chest 1 Vw Portable (01/27/2019 8:53 PM CDT) Only the most recent of 4 results within the time period is included. Specimen Narrative Performed At EXAMINATION:XR CHEST 1 VW PORTABLE [facility] CLINICAL HISTORY: fever COMPARISON:08/14/2018 IMPRESSION: Overall findings are not significantly changed as follows: Low lung volumes results in bronchovascular crowding and bibasilar atelectasis. Taking this into consideration, cardiomediastinal silhouette is within normal limits of size. No superimposed focal or confluent airspace consolidation is seen to suggest acute pneumonia. No sizable pleural effusion. No pneumothorax identified. Cholecystectomy clips seen within the right upper quadrant. No acute osseous abnormalities are visualized. [facility]-[id number] Procedure Note Hm Interface, Radiology Results Incoming - 01/27/2019 9:17 PM CDT EXAMINATION: XR CHEST 1 VW PORTABLE CLINICAL HISTORY: fever COMPARISON: 08/14/2018 IMPRESSION: Overall findings are not significantly changed as follows: Low lung volumes results in bronchovascular crowding and bibasilar atelectasis. Taking this into consideration, cardiomediastinal silhouette is within normal limits of size. No superimposed focal or confluent airspace consolidation is seen to suggest acute pneumonia. No sizable pleural effusion. No pneumothorax identified. Cholecystectomy clips seen within the right upper quadrant. No acute osseous abnormalities are visualized. [facility]-[id number] Performing Organization Address City/[facility]/Zipcode Phone Number [facility] [address] [place] [address] * Renal function panel (08/24/2018 4:52 AM GRADER MARKER) Sodium 141 135 - 148 mEq/L [facility] Potassium 3.7 3.5 - 5.0 mEq/L [facility] Chloride 109 98 - 112 mEq/L [facility] CO2 18 (L) 24 - 31 mEq/L [facility] Anion gap 14@ANIO 7 - 15 mEq/L [facility] BUN 12 6 - 20 mg/dL [facility] Creatinine 1.20 0.70 - 1.20 mg/dL [facility] Glucose 141 (H) 65 - 99 mg/dL [facility] Calcium 9.5 8.3 - 10.2 mg/dL [facility] Albumin 4.0 3.5 - 5.0 g/dL [facility] Phosphorus 3.4 2.4 - 4.5 mg/dL [facility] Specimen Plasma specimen Performing Organization Address City/[facility] Centercode Phone Number [facility] DEPARTMENT OF [address] [place] [address] [place] [address] PATHOLOGY AND GENOMIC MEDICINE [address] [place] [address] [facility] * Potassium level (08/21/2018 3:03 PM GRADER MARKER) Only the most recent of 2 results within the time period is included. Potassium 3.9 3.5 - 5.0 mEq/L [facility] Specimen Plasma specimen Performing Organization Address City/State/Zipcode [place] Number [place] [address] [place] [address] PATHOLOGY AND GENOMIC MEDICINE [facility] [address] [place] [address] [facility] * C difficile toxin (08/19/2018 12:23 PM GRADER MARKER) Only the most recent of 3 results within the time period is included. Clostridium No Clostridium difficle toxin [place] difficile toxin present CONFUCIANISM Comment: HOSPITAL Specimen Information Specimen Source: Stool Specimen Site: Not otherwise specified Specimen Stool - Not otherwise specified Performing Organization Address [facility]/Zipcode Phone Number [facility] DEPARTMENT OF [address] [place] [address] PATHOLOGY AND GENOMIC MEDICINE [facility] [address] * [place] Small Bowel Series (08/18/2018 10:45 PM GRADER MARKER) Specimen Narrative Performed At EXAMINATION:[place] SMALL BOWEL [facility] CLINICAL HISTORY:Bowel obstructionlow-grade COMPARISON:None. TECHNIQUE: SMALL BOWEL SERIES was performed with barium. FINDINGS: The route sales delivery driver film demonstrates a nasogastric tube and left ureteral stent in place. A calcification overlies the left renal collecting system measuring estimated 10 to 12 mm uncorrected for magnification. The abdominal gas pattern is nonspecific. The nasogastric tube curls with its tip in the stomach in the fundal region. Contrast was injected through the NG tube. The small bowel appears patent no abnormally dilated segments are identified. There appears to be some contrast material within the right colon by 2 1/2 hours although no contrast is noted in the left colon. An additional follow-up exam will be obtained. There are no additional findings of significance noted. IMPRESSION: 1. The small bowel appears patent as best be determined. Additional delayed film will be obtained. 2. Nasogastric tube curls with its tip in the stomach although the tip is in the fundal region. 3. Left-sided double pigtail ureteral stent with a calcification projecting within the area of the left renal collecting system/pelvis [id number] Procedure Note Interface, Radiology Results Incoming - 08/19/2018 7:25 AM GRADER MARKER EXAMINATION: [place] SMALL BOWEL CLINICAL HISTORY: Bowel obstruction low-grade COMPARISON: None. TECHNIQUE: SMALL BOWEL SERIES was performed with barium. FINDINGS: The route sales delivery driver film demonstrates a nasogastric tube and left ureteral stent in place. A calcification overlies the left renal collecting system measuring estimated 10 to 12 mm uncorrected for magnification. The abdominal gas pattern is nonspecific. The nasogastric tube curls with its tip in the stomach in the fundal region. Contrast was injected through the NG tube. The small bowel appears patent no abnormally dilated segments are identified. There appears to be some contrast material within the right colon by 2 1/2 hours although no contrast is noted in the left colon. An additional follow-up exam will be obtained. There are no additional findings of significance noted. IMPRESSION: 1. The small bowel appears patent as best be determined. Additional delayed film will be obtained. 2. Nasogastric tube curls with its tip in the stomach although the tip is in the fundal region. 3. Left-sided double pigtail ureteral stent with a calcification projecting within the area of the left renal collecting system/pelvis [id number] Performing Organization Address [facility] Phone Number [facility] [address] [place] [address] * Phosphorus level (08/18/2018 5:16 AM GRADER MARKER) Only the most recent of 2 results within the time period is included. Phosphorus 3.1 2.4 - 4.5 mg/dL [facility] Specimen Plasma specimen Performing Organization Address [facility] Phone Number [address] [place] [address] PATHOLOGY AND GENOMIC MEDICINE [address] * Magnesium level (08/18/2018 5:16 AM GRADER MARKER) Only the most recent of 4 results within the time period is included. Magnesium 1.8 1.6 - 2.6 mg/dL [facility] Specimen Plasma specimen Performing Organization Address [facility] Phone Number [address] [place] [address] PATHOLOGY AND GENOMIC MEDICINE [address] * XR Abdomen 1 Vw Portable (08/16/2018 1:57 PM GRADER MARKER) Specimen Narrative Performed At EXAMINATION:XR ABDOMEN 1 VW PORTABLE [facility] CLINICAL HISTORY:Abd traumabluntunstable, Vomiting COMPARISON:08/15/2018 IMPRESSION: 1.Nasogastric tube in the region of the stomach. This is stable. Left ureteral stent. Gaseous distention of loops of bowel slightly decreased compared to the prior exam. No free air. Procedure Note Interface, Radiology Results Incoming - 08/16/2018 2:01 PM GRADER MARKER EXAMINATION: XR ABDOMEN 1 VW PORTABLE CLINICAL HISTORY: Abd trauma blunt unstable, Vomiting COMPARISON: 08/15/2018 IMPRESSION: 1. Nasogastric tube in the region of the stomach. This is stable. Left ureteral stent. Gaseous distention of loops of bowel slightly decreased compared to the prior exam. No free air. Performing Organization Address [facility] CenterLiquid Machinestx Phone Number [employer] [address] [place] [address] * XR Abdomen 1 Vw (08/15/2018 6:10 AM GRADER MARKER) Only the most recent of 3 results within the time period is included. Specimen Narrative Performed At EXAMINATION:XR ABDOMEN 1 VW [facility] CLINICAL HISTORY:Abd traumabluntunstable, Vomiting COMPARISON:04/23/[address] from 08/13/2018 IMPRESSION: There is diffuse gaseous distention of small bowel loops with some colonic air which may reflect an ileus. Nasogastric tube is present in the left upper abdomen in the expected location of the stomach. There is left ureteral stent in place. Couple of large calyceal stones are noted in the left kidney. Developmental deformity of the hips with bony remodeling noted. [facility]-[id number] Procedure Note Interface, Radiology Results Incoming - 08/15/2018 7:10 AM GRADER MARKER EXAMINATION: XR ABDOMEN 1 VW CLINICAL HISTORY: Abd trauma blunt unstable, Vomiting COMPARISON: 04/23/[address] from 08/13/2018 IMPRESSION: There is diffuse gaseous distention of small bowel loops with some colonic air which may reflect an ileus. Nasogastric tube is present in the left upper abdomen in the expected location of the stomach. There is left ureteral stent in place. Couple of large calyceal stones are noted in the left kidney. Developmental deformity of the hips with bony remodeling noted. [facility]-[id number] Performing Organization Address City/[employer] Phone Number [address] [address] * Blood culture, aerobic & anaerobic (08/14/2018 11:00 AM GRADER MARKER) Only the most recent of 3 results within the time period is included. Pathologist [facility] Blood culture No growth after 5 days of [place] isolate incubation. CONFUCIANISM Comment: HOSPITAL Specimen Information Specimen Source: Blood Specimen Site: L INDEX FINGER Specimen Blood Performing Organization Address City/State/Zipcode Phone Number [facility] [place] [address] PATHOLOGY AND [facility] MEDIC[facility] [address] * Respiratory pathogen panel (08/14/2018 12:37 AM GRADER MARKER) [facility] Respiratory Negative for all pathogens [place] pathogen panel tested: CONFUCIANISM Negative for Adenovirus [facility] Negative for Coronavirus HKU1 Negative for Coronavirus NL63 Negative for Coronavirus 229E Negative for Coronavirus OC43 Negative for Human Metapneumovirus Negative for Rhinovirus/Enterovirus Negative for Influenza A Negative for Influenza A/H1 Negative for Influenza A/H3 Negative for Influenza A/H1-2009 Negative for Influenza B Negative for Parainfluenza Virus 1 Negative for Parainfluenza Virus 2 Negative for Parainfluenza Virus 3 Negative for Parainfluenza Virus 4 Negative for Respiratory Syncytial Virus Negative for Bordetella pertussis Negative for Chlamydophila pneumoniae Negative for Mycoplasma pneumoniae This real-time PCR assay detects the presence of nucleic acids (RNA or DNA) for the respiratory pathogens listed. A result of "Not-detected" does not exclude the possibility of the presence of one or more pathogens at concentrations less than the detectable limits of the assay. Comment: Specimen Information Specimen Source: Nares Specimen Site: Not specified Specimen Nares - Not specified Performing Organization Address City/State/Zipcode Phone Number [facility] [place] [address] PATHOLOGY AND [facility] [place] CON[address] * Influenza antigen test, reflex negative to RPP (08/14/2018 12:37 AM GRADER MARKER) [facility] Influenza Negative for Influenza A/B [place] antigen antigen. CASSANDRA OCONNELL Comment: [facility] Specimen Information Specimen Source: Nares Specimen Site: Not specified Specimen Nares - Not specified Performing Organization Address City/State/Zipcode Phone Number [address] [place] [phone] PATHOLOGY AND [address] * ECG 12 lead (08/14/2018 12:06 AM GRADER MARKER) Only the most recent of 2 results within the time period is included. Ventricular 129 [facility] rate Atrial rate 129 [facility] ID interval 142 [facility] QRSD interval 78 [facility] QT interval 400 [facility] QTC interval 586 [facility] P axis 1 44 [facility] M[facility] QRS axis 1 232 [facility] M[facility] T wave axis 38 [facility] EKG impression Sinus tachycardia-Right HM MUSE superior axis deviation-Anterior infarct (cited on or before 11-OCT-2015)-Abnormal ECG-In automated comparison with ECG of 01-MAY-2018 22:38,-No significant change was found- Specimen Narrative Performed At Performing Organization Address City/[facility] Phone Number [facility] [address] [place] [address] * B natriuretic peptide (08/14/2018 12:00 AM GRADER MARKER) Pathologist [facility] BNP 35 0 - 100 pg/mL [facility] Specimen Performing Organization Address City/[facility] Cent[facility] Phone Number [address] [place] [phone] PATHOLOGY AND [address] * Troponin (08/13/2018 11:38 PM GRADER MARKER) Pathologist [facility] Troponin <0.300 0.000 - 0.300 ng/mL [place] Comment: [facility] 0.30 - 1.49 [facility] ng/mlMay indicate increased risk of acute coronary syndrome. >=1.5 ng/ml Consistent with acute myocardial infarction. The diagnostic value of a single normal or non-diagnostic result is questionable.Serial samples at 2-6 hour intervals are required to rule out acute myocardial injury. Specimen Plasma specimen Performing Organization Address City/[facility]/Zipcode Phone Number [address] [place] [address] PATHOLOGY AND GENOMIC MEDICINE [address] * Lipase level (08/13/2018 11:38 PM GRADER MARKER) Only the most recent of 3 results within the time period is included. Lipase 11 (L) 13 - 60 U/L [facility] Specimen Plasma specimen Performing Organization Address [facility] Cent[facility] Phone Number [facility] [address] [place] [address] PATHOLOGY AND GENOMIC MEDICINE [address] * Creatine kinase, total (CPK) (08/13/2018 11:38 PM GRADER MARKER) Only the most recent of 2 results within the time period is included. Creatine kinase 55 39 - 308 U/L [facility] Specimen Plasma specimen Performing Organization Address [facility]otx Phone Number [facility] [place] [address] PATHOLOGY AND GENOMIC MEDICINE [address] * CT Abdomen Pelvis Wo Contrast (08/13/2018 10:44 PM GRADER MARKER) Only the most recent of 3 results within the time period is included. Specimen Narrative Performed At EXAMINATION:CT ABDOMEN PELVIS WO CONTRAST [facility] CLINICAL HISTORY:intractable n vh o cerebral palsy and ckd TECHNIQUE: Noncontrast images of the abdomen and pelvis were obtained without intravenous iodinated contrast. The lack of intravenous contrast limits assessment of the solid organs. CT imaging was performed with iterative reconstruction technique and/or automated exposure control to reduce radiation dose. COMPARISON: 05/03/2018 FINDINGS: LUNG BASES: Unremarkable ABDOMEN: Liver: Subtle hepatic steatosis. Gallbladder: Prior cholecystectomy. Spleen: The spleen is not enlarged. Pancreas: The pancreas is unremarkable. Adrenal Glands: The adrenal glands are unremarkable. Kidneys: Nonobstructing right nephrolithiasis. Persistent severe left hydronephrosis with a left ureteral stent in place. There is increased layering high density material within the left renal collecting system and unchanged left renal stones. Persistent mild stranding probably surrounding the proximal left ureter. Vascular: The abdominal aorta is nonaneurysmal. Nodes: No enlarged retroperitoneal or mesenteric lymphadenopathy. Bowel: Moderate fluid and gas distention of loops of both small bowel. There are several decompressed loops of small bowel. There is focal narrowing in the right lower quadrant, but bowel is dilated on either end of this narrowing, arguing against a true transition point. No discrete transition point is identified. Redemonstration of intestinal malrotation. Gas and fluid is present throughout the colon as well. Scattered colonic diverticula without evidence of diverticulitis. Ascites/fluid collections: No ascites or fluid collections. PELVIS: No mass, fluid collection or significant adenopathy. MUSCULOSKELETAL: No suspicious osseous lesions. IMPRESSION: 1.Moderate fluid and gas distention of loops of small bowel. There is no discrete transition point, but there are loops of decompressed distal small bowel, suggesting early/partial small bowel obstruction. 2.Gas and fluid in the colon, suggestive of diarrhea. This is also in keeping with early or partial small bowel obstruction. 3.Intestinal malrotation as previously described. 4.Persistent severe left hydronephrosis with left ureteral stent in place. Increased layering high density material within the left renal collecting system, possibly proteinaceous debris. [id number] Findings were discussed with Dr. AKIRA GARCIA at 08/13/2018 10:54 PM. Procedure Note [facility], Radiology Results Incoming - 08/13/2018 10:58 PM GRADER MARKER EXAMINATION: CT ABDOMEN PELVIS WO CONTRAST CLINICAL HISTORY: intractable n v h o cerebral palsy and ckd TECHNIQUE: Noncontrast images of the abdomen and pelvis were obtained without intravenous iodinated contrast. The lack of intravenous contrast limits assessment of the solid organs. CT imaging was performed with iterative reconstruction technique and/or automated exposure control to reduce radiation dose. COMPARISON: 05/03/2018 FINDINGS: LUNG BASES: Unremarkable ABDOMEN: Liver: Subtle hepatic steatosis. Gallbladder: Prior cholecystectomy. Spleen: The spleen is not enlarged. Pancreas: The pancreas is unremarkable. Adrenal Glands: The adrenal glands are unremarkable. Kidneys: Nonobstructing right nephrolithiasis. Persistent severe left hydronephrosis with a left ureteral stent in place. There is increased layering high density material within the left renal collecting system and unchanged left renal stones. Persistent mild stranding probably surrounding the proximal left ureter. Vascular: The abdominal aorta is nonaneurysmal. Nodes: No enlarged retroperitoneal or mesenteric lymphadenopathy. Bowel: Moderate fluid and gas distention of loops of both small bowel. There are several decompressed loops of small bowel. There is focal narrowing in the right lower quadrant, but bowel is dilated on either end of this narrowing, arguing against a true transition point. No discrete transition point is identified. Redemonstration of intestinal malrotation. Gas and fluid is present throughout the colon as well. Scattered colonic diverticula without evidence of diverticulitis. Ascites/fluid collections: No ascites or fluid collections. PELVIS: No mass, fluid collection or significant adenopathy. MUSCULOSKELETAL: No suspicious osseous lesions. IMPRESSION: 1. Moderate fluid and gas distention of loops of small bowel. There is no discrete transition point, but there are loops of decompressed distal small bowel, suggesting early/partial small bowel obstruction. 2. Gas and fluid in the colon, suggestive of diarrhea. This is also in keeping with early or partial small bowel obstruction. 3. Intestinal malrotation as previously described. 4. Persistent severe left hydronephrosis with left ureteral stent in place. Increased layering high density material within the left renal collecting system, possibly proteinaceous debris. [facility]-[id number] Findings were discussed with Dr. AKIRA GARCIA at 08/13/2018 10:54 PM. Performing Organization Address City/State/Zipcode Phone Number [facility] [address] [place] [address] * ECG ED Preliminary Interpretation - Not an Order (08/13/2018 9:46 PM GRADER MARKER) Only the most recent of 2 results within the time period is included. Narrative Performed At Akira Garcia MD 08/14/20182:17 AM ECG ED Preliminary Interpretation - Not an Order Performed by: Akira Garcia MD Authorized by: Akira Garcia MD ECG reviewed by ED Physician in the absence of a coconut cooker: yes Interpretation: Interpretation: abnormal Quality: Tracing quality:Limited by artifact Rate: ECG rate:129 ECG rate assessment: tachycardic Rhythm: Rhythm: sinus tachycardia QRS: QRS axis:Left QRS intervals:Normal Conduction: Conduction: normal ST segments: ST segments:Non-specific T waves: T waves: non-specific * CRITICAL CARE (08/13/2018 9:46 PM GRADER MARKER) Narrative Performed At Akira Garcia MD 08/14/20182:17 AM Critical Care Performed by: Akira Garcia MD Authorized by: Akira Garcia MD Critical care provider statement: Critical care time (minutes):45 Critical care time was exclusive of:Separately billable procedures and treating other patients Critical care was necessary to treat or prevent imminent or life-threatening deterioration of the following conditions:Dehydration (partial SBO, n/v, dehydration) Critical care was time spent personally by me on the following activities:Development of treatment plan with patient or surrogate, discussions with consultants, evaluation of patient's response to treatment, examination of patient, ordering and performing treatments and interventions, ordering and review of laboratory studies, ordering and review of radiographic studies, pulse oximetry, re-evaluation of patient's condition and obtaining history from patient or surrogate * Occult blood, stool (05/04/2018 4:10 AM CDT) Occult blood, Positive for Occult blood (A) [facility] stool Comment: DEPARTMENT OF Specimen Information PATHOLOGY AND Specimen Source: Stool GENOMIC Specimen Site: [facility] MEDICINE Specimen [facility] Performing Organization Address City/State/Zipcode Phone Number [facility] [place] [address] [place] [address] PATHOLOGY AND GENOMIC MEDICINE * CT Abdomen Pelvis W Contrast (05/03/2018 10:55 PM CDT) Specimen Narrative Performed At CT ABDOMEN PELVIS W CONTRAST [facility] CLINICAL INDICATION: Abd distension, assess for passage of oral contrast into colon TECHNIQUE:Multidetector CT imaging of the abdomen and pelvis was performed following the intravenous administration of iodinated contrast with multiplanar reconstructions.CT imaging was performed with iterative reconstruction technique and/or automated exposure control to reduce radiation dose. COMPARISON:05/02/2018. FINDINGS: LOWER THORAX:Aside from a small right pleural effusion, the visualized lungs are clear. LIVER:Hepatic steatosis with areas of fatty sparing. BILIARY:There are surgical changes related to cholecystectomy. There is no abnormal biliary ductal dilation. SPLEEN:Normal. PANCREAS:Normal. ADRENALS:Normal. KIDNEYS:There is similar appearance of the left-sided ureteral stent and moderate left hydronephrosis. There is redemonstration of multiple calyceal stones within the left greater than right kidneys. No ureteral calculus is identified. There is no right-sided hydronephrosis. GI: The duodenum never crosses midline and the majority of the colon is located within the left hemiabdomen, compatible with intestinal malrotation. Large and small bowel are normal in caliber.There are no inflammatory changes.There is sigmoid colon diverticulosis. VASCULAR:The superior mesenteric artery is located to the right of the superior mesenteric vein. The vasculature is otherwise unremarkable. LYMPH NODES:No enlarged lymph nodes in the abdomen or pelvis. PELVIS:The urinary bladder is normal in appearance. BONES:There are no acute osseous abnormalities. OTHER:There is no ascites or pneumoperitoneum. There is a fat-containing left inguinal hernia. IMPRESSION: 1. No acute intra-abdominal abnormality. 2. Similar appearance of the left-sided ureteral stent, moderate left hydronephrosis, and bilateral renal stones. 3. Intestinal malrotation. [facility]-[id number] Procedure Note [facility], Radiology Results Incoming - 05/03/2018 11:[address] ABDOMEN PELVIS W CONTRAST CLINICAL INDICATION: Abd distension, assess for passage of oral contrast into colon TECHNIQUE: Multidetector CT imaging of the abdomen and pelvis was performed following the intravenous administration of iodinated contrast with multiplanar reconstructions. CT imaging was performed with iterative reconstruction technique and/or automated exposure control to reduce radiation dose. COMPARISON: 05/02/2018. FINDINGS: LOWER THORAX: Aside from a small right pleural effusion, the visualized lungs are clear. LIVER: Hepatic steatosis with areas of fatty sparing. BILIARY: There are surgical changes related to cholecystectomy. There is no abnormal biliary ductal dilation. SPLEEN: Normal. PANCREAS: Normal. ADRENALS: Normal. KIDNEYS: There is similar appearance of the left-sided ureteral stent and moderate left hydronephrosis. There is redemonstration of multiple calyceal stones within the left greater than right kidneys. No ureteral calculus is identified. There is no right-sided hydronephrosis. GI: The duodenum never crosses midline and the majority of the colon is located within the left hemiabdomen, compatible with intestinal malrotation. Large and small bowel are normal in caliber. There are no inflammatory changes. There is sigmoid colon diverticulosis. VASCULAR: The superior mesenteric artery is located to the right of the superior mesenteric vein. The vasculature is otherwise unremarkable. LYMPH NODES: No enlarged lymph nodes in the abdomen or pelvis. PELVIS: The urinary bladder is normal in appearance. BONES: There are no acute osseous abnormalities. OTHER: There is no ascites or pneumoperitoneum. There is a fat-containing left inguinal hernia. IMPRESSION: 1. No acute intra-abdominal abnormality. 2. Similar appearance of the left-sided ureteral stent, moderate left hydronephrosis, and bilateral renal stones. 3. Intestinal malrotation. [facility]-[id number] Performing Organization Address City/[facility]/Zipcode Phone Number [facility] [address] [place] [address] * Estimated GFR (05/01/2018 11:10 PM CDT) Only the most recent of 6 results within the time period is included. GFR Non Af Amer 83 mL/min/1.73 m2 [facility] DEPARTMENT OF PATHOLOGY AND GENOMIC MEDICINE GFR Af Amer >90 mL/min/1.73 m2 [facility] Comment: DEPARTMENT OF Chronic kidney disease: <60 PATHOLOGY AND mL/min/1.73m2 GENOMIC Kidney failure: <15 MEDICINE mL/min/1.73m2 The estimated GFR is calculated from the IDMS-traceable Modification of Diet in Renal Disease Equation. The accuracy of the calculation is poor when the creatinine is normal. Calculated values >90 mL/min/1.73m2 are not reported. This equation has not been validated in children (<18 years), women, the elderly (>70 years), or ethnic groups other than Caucasians and Americans. Specimen Plasma specimen Performing Organization Address [facility] Phone Number [facility] [id number] [place] [address] [place] [address] PATHOLOGY AND [facility] * Amylase level (05/01/2018 11:10 PM CDT) Amylase 28 13 - 73 U/L [facility] DEPARTMENT OF PATHOLOGY AND GENOMIC MEDICINE Specimen Plasma specimen Performing Organization Address [facility] Phone Number [address] [place] [address] PATHOLOGY AND [facility] * NM Renal Scan Wflow Funct Sgl Int W/Mag 3 (04/22/2018 8:03 PM CDT) Specimen Narrative Performed At PROCEDURE:NM RENAL SCAN WFLOW FUNCT SGL INT W MAG 3 [facility] INDICATION:Hydroureter. TECHNIQUE: The patient was injected with 10 mCi of Tc-99m MAG-3, IV. Dynamic images of the abdomen were acquired for 40 minutes. At 20 minutes, a standard dose of IV lasix was administered. FINDINGS:Perfusion to both kidneys is normal.Cortical transit time through both kidneys is less than 5 minutes.Urine flows freely from the right kidney into the bladder.Stasis is noted in the left kidney with normal washout after Lasix.T1/2 of the left kidney is 11 min, which is normal, given the presence of a stent. Normal washout is less than 10 minutes. High grade obstruction is suggested if greater than 20 minutes. Between 10 and 20 minutes is indeterminate. Split function:Left kidney 57%, right kidney 43%. IMPRESSION: 1.No evidence for high grade obstruction of either kidney.The right kidney drains normally.Stasis in the left kidney clears normally after Lasix. [facility]-[id number] Procedure Note Interface, Radiology Results Incoming - 04/22/2018 9:31 PM CDT PROCEDURE: NM RENAL SCAN WFLOW FUNCT SGL INT W MAG 3 INDICATION: Hydroureter. TECHNIQUE: The patient was injected with 10 mCi of Tc-99m MAG-3, IV. Dynamic images of the abdomen were acquired for 40 minutes. At 20 minutes, a standard dose of IV lasix was administered. FINDINGS: Perfusion to both kidneys is normal. Cortical transit time through both kidneys is less than 5 minutes. Urine flows freely from the right kidney into the bladder. Stasis is noted in the left kidney with normal washout after Lasix. T1/2 of the left kidney is 11 min, which is normal, given the presence of a stent. Normal washout is less than 10 minutes. High grade obstruction is suggested if greater than 20 minutes. Between 10 and 20 minutes is indeterminate. Split function: Left kidney 57%, right kidney 43%. IMPRESSION: 1. No evidence for high grade obstruction of either kidney. The right kidney drains normally. Stasis in the left kidney clears normally after Lasix. [facility]-[id number] Performing Organization Address City/State/Zipcode Phone Number [facility] [address] [place] [address] * Hepatic function panel (04/19/2018 11:38 PM CDT) Albumin 4.7 3.5 - 5.0 g/dL [facility] DEPARTMENT OF PATHOLOGY AND GENOMIC MEDICINE Total bilirubin 0.8 0.0 - 1.2 mg/dL [facility] DEPARTMENT OF PATHOLOGY AND GENOMIC MEDICINE Bilirubin <0.1 0.0 - 0.3 mg/dL [facility] direct DEPARTMENT OF PATHOLOGY AND GENOMIC MEDICINE Alkaline 140 (H) 40 - 129 U/L [facility] phosphatase DEPARTMENT OF PATHOLOGY AND GENOMIC MEDICINE Protein 8.8 (H) 6.3 - 8.3 g/dL [facility] Comment: DEPARTMENT OF PATHOLOGY AND 4.6-7.0 g/dL GENOMIC 1 MEDICINE week 4.4-7.6 g/dL 7 months-1year 5.1-7.3 g/dL 1-2 years5.6-7 .5 g/dL >3 years6.0-8 .0 g/dL 18-150 6.3-8.3 g/dL ALT 29 5 - 50 U/L [facility] DEPARTMENT OF PATHOLOGY AND GENOMIC MEDICINE AST 23 10 - 50 U/L [facility] DEPARTMENT OF PATHOLOGY AND GENOMIC MEDICINE Specimen Plasma specimen Performing Organization Address City/State/Zipcode Phone Number [facility] DEPARTMENT [address] [place] [address] PATHOLOGY AND GENOMIC MEDICINE after 02/02/2018 Insurance Type Payer Benefit Subscriber ID Effective Phone Address Plan / Dates Group [facility] DUAL xxxxxxxxx 2017-P COMPLETE resent MCR [facility] xxxxxxxxx 2015-P COMM STAR+ resent CARMELO Advance Directives Patient has advance care planning documents, and code status on file. For more i nformation, please contact: Gio Díaz [address] [place] [address] Date Inactivated Comments Code Status Date Activated 05/10/2018 3:41 AM Full Code 05/02/2018 2:32 AM Code Status decision reached by: Patient 10/29/2017 2:24 PM Full Code 10/27/2017 11:07 AM Code Status decision reached by: Patient 04/22/2017 7:45 PM Full Code 04/15/2017 3:00 AM Code Status decision reached by: Patient 01/05/2017 11:32 PM Full Code 12/31/2016 5:33 PM Code Status decision reached by: Patient
--- OUTSIDE RECORDS SUMMARY | 2019-02-03 09:50 | XMS REPORT ---
Author Author [facility] Address Unknown Phone Unavailable Care Team Providers Care Sheetmetal Patternmaker Name Role Phone YELENA GOINS Unavailable Unavailable Problems This patient has no known problems. Allergies, Adverse Reactions, Alerts This patient has no known allergies or adverse reactions. Medications This patient has no known medications. Encounters Start Date/Time End Date/Time Encounter Type Admission Type Attending Clinicians Care Facility Care Department Encounter ID 2017-11-29 10:22:00 Inpatient [facility] [id number] 2017-02-24 16:26:00 Inpatient [facility] [id number] Results Test Description Test Time Test Comments Text Results Atomic Results Result Comments ABDOMEN-1VIEW (KUB) 2019-02-02 16:42:00 [place] [address] Patient Name: ILYA GANDHI MR #: [id number] : 1980 Age/Sex: 38/M Req #: [id number] Adm Physician: Ordered by: YELENA GOINS MD Report #: [id number] Location: OR Room/Bed: Procedure: [id number] DX/ABDOMEN-1VIEW (KUB) Exam Date: Exam Time: REPORT STATUS: Signed Exam: KUB; 2 views History: Stones Comparison: 11/28/2008 Findings: Left ureteral stent is present. There is staghorn calculus in the left kidney. There has been progression of stone formation compared to the prior study. Small stone in the upper pole is also seen on the left. Degenerative changes of both hips is present. Impression: Left staghorn calculi. Signed by: Dr. Lianna Dobson DO on 02/02/2019 4:44 PM Dictated By: LIANNA DOBSON DO 43 Transcribed By: BIBIANA on 02/02/191643 COPY TO: YELENA GOINS MD ABDOMEN-1VIEW (KUB) 2018-11-28 16:08:00 [place] [address] Patient Name: ILYA GANDHI MR #: [id number] : 1980 Age/Sex: 38/M Req #: [id number] Adm Physician: Ordered by: YELENA GOINS MD Report #: [id number] Location: OR Room/Bed: Procedure: [id number] DX/ABDOMEN-1VIEW (KUB) Exam Date: 11/28/18 Exam Time: [...] 4:12 PM Dictated By: TELLO RAGSDALE MD 161 Transcribed By: BIBIANA on 11/28/18 161 COPY TO: YELENA GOINS MD ABDOMEN-1VIEW (KUB) 2018-11-24 17:43:00 [place] [address] Patient Name: ILYA GANDHI MR #: [id number] : 1980 Age/Sex: 38/M Req #: [id number] Adm Physician: Ordered by: YELENA GOINS MD Report #: [id number] Location: [facility] Room/Bed: Procedure: [id number] DX/ABDOMEN-1VIEW (KUB) Exam Date: Exam Time: REPORT [...]
[2019-02-03 18:30] VITALS: BP 125/81
--- NOTE | 2019-03-23 05:06 | Operative Report ---
DATE OF PROCEDURE: 02/03/2019 SURGEON: Edgar Dangelo MD PREOPERATIVE DIAGNOSES: 1. Left nephrolithiasis. 2. Left indwelling ureteral stent. POSTOPERATIVE DIAGNOSES: 1. Left nephrolithiasis. 2. Left indwelling ureteral stent. OPERATIONS PERFORMED: Note: These were all staged procedures as part of multistaged, multistep process in managing the patient's urolithiasis. 1. Cystourethroscopy with complicated removal of left indwelling ureteral stent (separate procedure performed with separate scope for the diagnosis of stent). 2. Left ureteroscopy with holmium laser lithotripsy and insertion of stent (separate procedure performed for the nephrolithiasis). 3. Radiological services for supervision and interpretation of ureteroscopy. 4. Interpretation of retrograde ureteropyelography. 5. Supervision of fluoroscopy, no radiologist present. ANESTHESIA: General. COMPLICATIONS: None. CLINICAL SUMMARY: Arturo Medina is a 38-year-old man with nephrolithiasis. He has undergone stenting. He has undergone lithotripsy. He is brought for additional management. He is aware of the risks of bleeding, infection, injury to adjacent structures, need for additional procedures and elected to proceed. OPERATIVE PROCEDURE IN DETAIL: Informed consent was verified. Arturo Medina was properly identified, taken to operating room, placed on the cystoscopy table in supine position. Anesthesia was uneventfully begun. The patient was then carefully and gently repositioned in the dorsal lithotomy position with all pressure points well padded. His genitalia were prepared and draped in usual sterile fashion. The cystoscope sheath with the visual obturator in place was atraumatically inserted. The patient's urethra was guided down the unremarkable urethra through normal sphincteric region into the patient's bladder, where we encountered a stent emerging in the left ureteral orifice with mild erythema and some stone debris. A guidewire was then placed into the left ureter and guided to the level of the patient's kidney. The stent was then grasped, completely removed and discarded. Semi-rigid ureteroscope was then placed alongside the guidewire and guided into the patient's left distal ureter. No stone was visualized. A secondary guidewire was left in place. Flexible ureteroscope was then brought up over the guidewire and guided to the level of the patient's kidney. There was a copious stone burden noted, most of it was small sand. Several significantly sized kidney stones were then identified. Holmium laser lithotripsy was then performed to pulverize the stones into which should be passable size. Once all stone burden was pulverized into small stones, with cystoscopic and fluoroscopic guidance, a left-sided indwelling ureteral stent was then placed, it was coiled in the patient's kidneys as well as the patient's bladder. The retaining suture was cut short. Interpretation of retrograde ureteropyelography contrast was instilled in retrograde fashion bilaterally. There were no tumors, identified filling defects that corresponded to stone and sand, and blood clots were identified. The stent was in good position, coiled in the patient's kidneys as well as the patient's bladder at the end of the case. There was calyceal blunting throughout consistent with chronic hydronephrosis. The patient's bladder was drained. Cystoscope was withdrawn. Belladonna and opium suppository were placed. The patient was uneventfully reversed from anesthesia and taken to recovery room in stable condition. Explicit postop instructions were given. Plans will be to return to the operating room to remove his stent, to perform left ureteroscopy, and hopefully render the patient stent free and stone free. MD FRANCISCO Mustafa/FOREST /[id number]
== END | disposition home or self-care (01) ==
LOC: OR 09:36
PROVIDERS: ATTEND Urology
DX: N20.0 Calculus of kidney (principal); Z96.0 Presence of urogenital implants; E11.9 Type 2 diabetes mellitus without complications; B96.89 Other specified bacterial agents as the cause of diseases classified elsewhere; R07.9 Chest pain, unspecified; G80.9 Cerebral palsy, unspecified; G91.9 Hydrocephalus, unspecified; F41.9 Anxiety disorder, unspecified; Z88.6 Allergy status to analgesic agent; Z01.812 Encounter for preprocedural laboratory examination
CPT/HCPCS: 36415 ×2; 52356; 74018; 74420; 80048; 82948; 87086; 88300; C1766; C1874; J0131; J0696; J1580; J2001; J2175; J2250; J2405; J2704; Q9967; J3010

== ENCOUNTER → 2019-03-24 | Day surgery (SDC) | payer MEDICARE, OTHER ==
--- NOTE | 2019-03-23 16:04 | Diagnostic Imaging Report ---
EXAMINATION: CHEST 2 VIEWS INDICATION: Pre-operative COMPARISON: None FINDINGS: LINES/TUBES:None LUNGS:The lungs are moderately inflated. No focal consolidation or pulmonary edema. PLEURA:No pleural effusion or pneumothorax. MEDIASTINUM:The cardiomediastinal silhouette appears normal in size and shape. BONES/SOFT TISSUES:No acute osseous injury. ABDOMEN:No free air under the diaphragm. IMPRESSION: No focal pneumonia or pulmonary edema. Signed by: Lalo Denis MD on 03/23/2019 4:00 PM
[2019-03-23 16:07] LABS: BASOPHILS % 0.6 % (0.0-1.0); EOSINOPHILS % 0.4 % (0.0-6.0); HEMATOCRIT 47.7 % (38.2-49.6); HEMOGLOBIN 15.5 g/dL (14.0-18.0); LYMPHOCYTES # (AUTO) 1.4 (1.0-3.2); LYMPHOCYTES % 20.1 % (18.0-39.1); MEAN CORPUSCULAR HEMOGLOBIN 26.3 pg (28-32); MEAN CORPUSCULAR HGB CONC 32.5 g/dL (31-35); MONOCYTES # (AUTO) 0.5 (0.2-0.8); MONOCYTES % 6.7 % (4.4-11.3); NEUTROPHILS # (AUTO) 4.8 (2.1-6.9); NEUTROPHILS % 71.8 % (38.7-80.0); PLATELET COUNT 225 x10e3/uL (140-360); RED BLOOD COUNT 5.89 x10e6/uL (4.3-5.7); RED CELL DISTRIBUTION WIDTH 14.9 % (11.7-14.4)
[2019-03-23 16:26] LABS: ANION GAP 14.5 mmol/L (8-16); BLOOD UREA NITROGEN 14 mg/dL (7-26); BUN/CREATININE RATIO 14 (6-25); CALCIUM 9.5 mg/dL (8.4-10.2); CARBON DIOXIDE 17 mmol/L (22-29); CHLORIDE 114 mmol/L (98-107); CREATININE, SERUM 1.02 mg/dL (0.72-1.25); EST GLOMERULAR FILTRATION RATE > 60 ML/MIN (60-); GLUCOSE 182 mg/dL (74-118); POTASSIUM 3.5 mmol/L (3.5-5.1); SODIUM 142 mmol/L (136-145)
[~2019-03-24] MED LIST changes: -ACETAMINOPHEN 1000 MG/100 ML 100 ML IV ONE; -ACETAMINOPHEN/CODEINE 300MG - 30MG TAB ONE; -CEFTRIAXONE SOD 1 GM/NS 50 ML 50 ML IV ONE; +EPHEDRINE SULFATE INJ 50 MG/ML VIAL ONE; -GENTAMICIN 80MG/NS 100 ML 100 ML IV ONE; -MEPERIDINE HCL INJ 25 MG/ML VIAL ONE; +PIPER-TAZ 3.375 GM 50 ML ONE; +PROMETHAZINE HCL (IM) 25 MG/ML VIAL ONE
--- OUTSIDE RECORDS SUMMARY | 2019-03-24 12:11 | XMS REPORT | Clinical Summary ---
Author Author [employer] Organization [place] [facility] Address Unknown Phone Unavailable Care Team Providers Care Paedodontist Name Role Phone Katie Palm DO PCP [...] Complicated urinary tract infection (Primary Dx) 01/27/2019 [facility] General Internal Medicine - Encounter [...] unspecified; SBO (small bowel obstruction) (HCC) 08/13/2018 [facility] General Internal Medicine - Encounter 08/24/2018 08/13/2018 Travel Marcus Harris MD 05/09/2018 Anesthesia General Surgery Event Gabriel Lee MD 05/06/2018 Telephone Urology Kalpana Graff MD Al-Lahiq, Maha, MD Teqwimuah, Remy, DO Intestinal malrotation (Primary Dx); Acute cystitis without hematuria; C. difficile colitis 05/01/2018 [facility] General Internal Medicine - Encounter 05/09/2018 Arturo Maharaj MD Al-Lahiq, Maha, MD Teqwimuah, Remy, DO Dehydration (Primary Dx); C. difficile colitis; Urinary tract infection with hematuria, site unspecified 04/19/2018 [facility] General Internal Medicine - Encounter 04/25/2018 Michi Berg MD Urinary tract infection without hematuria, site unspecified (Primary Dx); Cough 04/11/2018 Emergency Emergency Medicine after 03/23/2018 Family History Medical History Relation Name Comments [...] Serial / Lot Implanted Type Area Manufactur [id number] / / Catheter Uretl 5fr 70cm Opn-End Cardiovasc Left: Ureter, COOK Flx-Tp Std - [id number] ular Robinson UROLOGICAL Implanted: Qty: 1 on 11/03/2016 by Implants DeseanLuis Daniel MD Stent-10/21/2016 Stent Urethra Implanted: 10/21/2016 (Quantity not on file) 07/24/2019 [facility] 626 R / / [id number] Stent Uretl Unvrsa 6fr 26cm Urological Left: Ureter, COOK Hydrphlc W/O Gw - [id number] Implants Robinson UROLOGICAL Implanted: Qty: 1 on 11/03/2016 by [...] CDT POC GLUCOSE Routine 08/24/2018 11:59 AM ENTRY MANAGER POC GLUCOSE Routine 08/24/2018 6:27 AM ENTRY MANAGER ESTIMATED GFR Routine 08/24/2018 4:52 AM ENTRY MANAGER RENAL FUNCTION PANEL Routine 08/24/2018 4:52 AM ENTRY MANAGER POC GLUCOSE Routine 08/23/2018 7:36 PM ENTRY MANAGER POC GLUCOSE Routine 08/23/2018 4:27 PM ENTRY MANAGER POC GLUCOSE Routine 08/23/2018 11:31 AM ENTRY MANAGER POC GLUCOSE Routine 08/23/2018 5:42 AM ENTRY MANAGER ESTIMATED GFR Routine 08/23/2018 5:30 AM ENTRY MANAGER BASIC METABOLIC PANEL Routine 08/23/2018 5:30 AM ENTRY MANAGER HC COMPLETE BLD COUNT Routine 08/23/2018 W/AUTO DIFF 5:30 AM ENTRY MANAGER POC GLUCOSE Routine 08/22/2018 7:50 PM ENTRY MANAGER POC GLUCOSE Routine 08/22/2018 4:38 PM ENTRY MANAGER POC GLUCOSE Routine 08/22/2018 12:23 PM ENTRY MANAGER POC GLUCOSE Routine 08/22/2018 5:57 AM ENTRY MANAGER POC GLUCOSE Routine 08/21/2018 7:35 PM ENTRY MANAGER POC GLUCOSE Routine 08/21/2018 4:29 PM ENTRY MANAGER POTASSIUM LEVEL Routine 08/21/2018 3:03 PM ENTRY MANAGER POC GLUCOSE Routine 08/21/2018 11:03 AM ENTRY MANAGER ESTIMATED GFR Routine 08/21/2018 6:42 AM ENTRY MANAGER BASIC METABOLIC PANEL Routine 08/21/2018 6:42 AM ENTRY MANAGER POC GLUCOSE Routine 08/21/2018 6:03 AM ENTRY MANAGER POC GLUCOSE Routine 08/20/2018 7:45 PM ENTRY MANAGER POC GLUCOSE Routine 08/20/2018 4:38 PM ENTRY MANAGER POC GLUCOSE Routine 08/20/2018 11:35 AM ENTRY MANAGER POC GLUCOSE Routine 08/20/2018 5:34 AM ENTRY MANAGER ESTIMATED GFR Routine 08/20/2018 4:55 AM ENTRY MANAGER BASIC METABOLIC PANEL Routine 08/20/2018 4:55 AM ENTRY MANAGER POC GLUCOSE Routine 08/19/2018 8:12 PM ENTRY MANAGER POC GLUCOSE Routine 08/19/2018 5:24 PM ENTRY MANAGER CLOSTRIDIUM DIFFICILE Routine 08/19/2018 TOXIN 12:23 PM ENTRY MANAGER POC GLUCOSE Routine 08/19/2018 11:06 AM ENTRY MANAGER POC GLUCOSE Routine 08/19/2018 5:31 AM ENTRY MANAGER ESTIMATED GFR Routine 08/19/2018 4:15 AM ENTRY MANAGER BASIC METABOLIC PANEL Routine 08/19/2018 4:15 AM ENTRY MANAGER POC GLUCOSE Routine 08/18/2018 10:46 PM ENTRY MANAGER FL SMALL BOWEL Routine 08/18/2018 10:45 PM ENTRY MANAGER POC GLUCOSE Routine 08/18/2018 4:34 PM ENTRY MANAGER POC GLUCOSE Routine 08/18/2018 11:30 AM ENTRY MANAGER POC GLUCOSE Routine 08/18/2018 5:55 AM ENTRY MANAGER ESTIMATED GFR Routine 08/18/2018 5:16 AM ENTRY MANAGER MAGNESIUM LEVEL Routine 08/18/2018 5:16 AM ENTRY MANAGER PHOSPHORUS LEVEL Routine 08/18/2018 5:16 AM ENTRY MANAGER COMPREHENSIVE METABOLIC Routine 08/18/2018 PANEL 5:16 AM ENTRY MANAGER HC COMPLETE BLD COUNT Routine 08/18/2018 W/AUTO DIFF 5:16 AM ENTRY MANAGER POC GLUCOSE Routine 08/17/2018 7:44 PM ENTRY MANAGER POC GLUCOSE Routine 08/17/2018 5:17 PM ENTRY MANAGER POC GLUCOSE Routine 08/17/2018 11:49 AM ENTRY MANAGER POC GLUCOSE Routine 08/17/2018 6:03 AM ENTRY MANAGER POC GLUCOSE Routine 08/16/2018 7:34 PM ENTRY MANAGER POC GLUCOSE Routine 08/16/2018 5:19 PM ENTRY MANAGER XR ABDOMEN 1 VW PORTABLE STAT 08/16/2018 1:57 PM ENTRY MANAGER POC GLUCOSE Routine 08/16/2018 11:19 AM ENTRY MANAGER ESTIMATED GFR Routine 08/16/2018 7:20 AM ENTRY MANAGER BASIC METABOLIC PANEL Routine 08/16/2018 7:20 AM ENTRY MANAGER HC COMPLETE BLD COUNT Routine 08/16/2018 W/AUTO DIFF 7:20 AM ENTRY MANAGER POC GLUCOSE Routine 08/16/2018 7:05 AM ENTRY MANAGER POC GLUCOSE Routine 08/16/2018 5:57 AM ENTRY MANAGER POC GLUCOSE Routine 08/16/2018 12:12 AM ENTRY MANAGER POC GLUCOSE Routine 08/15/2018 6:30 PM ENTRY MANAGER ESTIMATED GFR Routine 08/15/2018 3:55 PM ENTRY MANAGER COMPREHENSIVE METABOLIC Routine 08/15/2018 PANEL 3:55 PM ENTRY MANAGER POC GLUCOSE Routine 08/15/2018 11:34 AM ENTRY MANAGER XR ABDOMEN 1 VW STAT 08/15/2018 6:10 AM ENTRY MANAGER POC GLUCOSE Routine 08/15/2018 5:59 AM ENTRY MANAGER POC GLUCOSE Routine 08/15/2018 1:18 AM ENTRY MANAGER POC GLUCOSE Routine 08/14/2018 6:29 PM ENTRY MANAGER XR CHEST 1 VW PORTABLE STAT 08/14/2018 1:55 PM ENTRY MANAGER POC GLUCOSE Routine 08/14/2018 12:57 PM ENTRY MANAGER LACTIC ACID LEVEL, SEPSIS Timed 08/14/2018 - NOW AND REPEAT 2X EVERY 11:00 AM ENTRY MANAGER 3 HOURS BLOOD CULTURE, AEROBIC & Routine 08/14/2018 ANAEROBIC 11:00 AM ENTRY MANAGER OCCULT BLOOD, GASTRIC Routine 08/14/2018 10:00 AM ENTRY MANAGER BLOOD CULTURE, AEROBIC & Routine 08/14/2018 ANAEROBIC 7:45 AM ENTRY MANAGER LACTIC ACID LEVEL, SEPSIS Timed 08/14/2018 - NOW AND REPEAT 2X EVERY 7:20 AM ENTRY MANAGER 3 HOURS ESTIMATED GFR Routine 08/14/2018 6:06 AM ENTRY MANAGER COMPREHENSIVE METABOLIC Routine 08/14/2018 PANEL 6:06 AM ENTRY MANAGER HC COMPLETE BLD COUNT Routine 08/14/2018 W/AUTO DIFF 6:06 AM ENTRY MANAGER LACTIC ACID LEVEL, SEPSIS Timed 08/14/2018 - NOW AND REPEAT 2X EVERY 1:16 AM ENTRY MANAGER 3 HOURS BLOOD CULTURE, AEROBIC & Routine 08/14/2018 ANAEROBIC 1:16 AM ENTRY MANAGER RESPIRATORY PATHOGEN Routine 08/14/2018 PANEL 12:37 AM ENTRY MANAGER INFLUENZA ANTIGEN TEST, Routine 08/14/2018 REFLEX NEGATIVE TO RPP 12:37 AM ENTRY MANAGER ECG 12-LEAD STAT 08/14/2018 12:06 AM ENTRY MANAGER B NATRIURETIC PEPTIDE Routine 08/14/2018 12:00 AM ENTRY MANAGER HC COMPLETE BLD COUNT Routine 08/14/2018 W/AUTO DIFF 12:00 AM ENTRY MANAGER PROTHROMBIN TIME WITH INR Routine 08/14/2018 12:00 AM ENTRY MANAGER PARTIAL THROMBOPLASTIN Routine 08/14/2018 TIME (PTT) 12:00 AM ENTRY MANAGER ESTIMATED GFR STAT 08/13/2018 11:38 PM ENTRY MANAGER CREATINE KINASE, TOTAL STAT 08/13/2018 (CPK) 11:38 PM ENTRY MANAGER TROPONIN STAT 08/13/2018 11:38 PM ENTRY MANAGER LIPASE LEVEL STAT 08/13/2018 11:38 PM ENTRY MANAGER MAGNESIUM LEVEL STAT 08/13/2018 11:38 PM ENTRY MANAGER PHOSPHORUS LEVEL STAT 08/13/2018 11:38 PM ENTRY MANAGER COMPREHENSIVE METABOLIC STAT 08/13/2018 PANEL 11:38 PM ENTRY MANAGER GRAM STAIN STAT 08/13/2018 11:38 PM ENTRY MANAGER URINE CULTURE STAT 08/13/2018 11:38 PM ENTRY MANAGER URINALYSIS SCREEN AND STAT 08/13/2018 MICROSCOPY, WITH REFLEX 11:14 PM ENTRY MANAGER TO CULTURE CT ABDOMEN PELVIS WO STAT 08/13/2018 CONTRAST 10:44 PM ENTRY MANAGER XR CHEST 1 VW PORTABLE STAT 08/13/2018 10:23 PM ENTRY MANAGER ECG ED PRELIMINARY Routine 08/13/2018 INTERPRETATION 9:46 PM ENTRY MANAGER MO CRITICAL CARE, E/M Routine 08/13/2018 30-74 MINUTES 9:46 PM ENTRY MANAGER POC GLUCOSE Routine 05/09/2018 8:51 PM CDT [...] CULTURE Routine 04/11/2018 3:09 AM CDT after 03/23/2018 Results * POC glucose (01/30/2019 4:25 PM CDT) Only the most recent of 109 results within the time period is included. POC glucose 126 (H) 65 - 99 mg/dL [place] Comment: [facility] Meter ID: [id number] [facility] Telemarketing Representative: Mango Gifford Specimen Performing Organization Address City/State/Zipcode Phone Number [facility] DEPARTMENT OF [address] [place] [address] [place] [address] PATHOLOGY AND GENOMIC MEDICINE [facility] [address] [place] [address] * Estimated GFR (01/30/2019 5:02 AM CDT) Only the most recent of 18 results within the time period is included. [facility] Estimated GFR 75 mL/min/1.73 m2 [place] Comment: [facility] rpretation G1 >=90 Normal or high G2 60-89Mildly decreased [id number] Mildly to moderately decreased [id number] Moderately to severely decreased G4 15-29Severely decreased G5 <15Kidney failure The eGFR was calculated using the Chronic Kidney Disease Epidemiology Collaboration (CKD-EPI) equation. Interpretation is based on recommendations of the National Kidney Foundation-Kidney Disease Outcomes Quality Initiative (NKF-KDOQI) published in 2014. Specimen Plasma specimen Performing Organization Address City/State/Zipcode Phone Number [facility] DEPARTMENT OF [address] [place] [address] [place] [address] PATHOLOGY AND GENOMIC MEDICINE [facility] [id number] [place] [address] * CBC with platelet and differential (01/30/2019 5:02 AM CDT) Only the most recent of 16 results within the time period is included. [facility] WBC 5.05 4.50 - 11.00 k/uL [facility] RBC 5.31 4.40 - 6.00 m/uL [facility] HGB 13.4 (L) 14.0 - 18.0 g/dL [facility] HCT 44.5 41.0 - 51.0 % [facility] MCV 83.8 82.0 - 100.0 fL [facility] MCH 25.2 (L) 27.0 - 34.0 pg [facility] MCHC 30.1 (L) 31.0 - 37.0 g/dL [facility] RDW - SD 45.8 37.0 - 55.0 fL [facility] MPV 9.7 8.8 - 13.2 fL [facility] Platelet count 145 (L) 150 - 400 k/uL [facility] Nucleated RBC 0.00 /100 WBC [facility] Neutrophils 49.7 39.0 - 69.0 % [facility] Lymphocytes 39.2 25.0 - 45.0 % [facility] Monocytes 7.1 0.0 - 10.0 % [facility] Eosinophils 3.4 0.0 - 5.0 % [facility] Basophils 0.4 0.0 - 1.0 % [facility] Specimen Blood Performing Organization Address City/[facility] Phone Number [address] [place] [address] PATHOLOGY AND GENOMIC MEDICINE [address] * Lactic acid level (01/30/2019 5:02 AM CDT) Only the most recent of 2 results within the time period is included. Pathologist [facility] Lactic acid 0.8 0.5 - 2.2 mmol/L [facility] Specimen Plasma specimen Performing Organization Address [facility] Phone Number [facility] DEPARTMENT [address] [place] [address] PATHOLOGY AND GENOMIC MEDICINE [address] [place] [phone] [facility] * Basic metabolic panel (01/30/2019 5:02 AM CDT) Only the most recent of 15 results within the time period is included. Sodium 142 135 - 148 mEq/L [facility] Potassium 3.5 3.5 - 5.0 mEq/L [facility] Chloride 114 (H) 98 - 112 mEq/L [facility] CO2 18 (L) 24 - 31 mEq/L [facility] Anion gap 10@ANIO 7 - 15 mEq/L [facility] BUN 13 6 - 20 mg/dL [facility] Creatinine 1.20 0.70 - 1.20 mg/dL [facility] Glucose 92 65 - 99 mg/dL [facility] Calcium 8.8 8.3 - 10.2 mg/dL [facility] Specimen Plasma specimen Performing Organization Address [facility] Phone Number [facility] DEPARTMENT [address] [place] [address] PATHOLOGY AND GENOMIC MEDICINE [place] [facility] [address] [place] [address] [facility] * CT Renal Stone Protocol (01/29/2019 4:58 PM CDT) Specimen Narrative Performed At EXAMINATION:[facility] CLINICAL H[facility]ORY:stone protocol TECHNIQUE: Multiple axial images [...] more numerous and larger on the left. [facility]-[id number] Procedure Note Interface, Radiology Results [facility] - 01/29/2019 8:23 PM CDT EXAMINATION: CT [...] more numerous and larger on the left. [facility]-[id number] Performing Organization Address City/[facility]/Zipcode Phone Number [facility] [address] [place] [address] * Smear review (01/28/2019 6:50 AM CDT) Only the most recent of 2 results within the time period is included. Platelet slide Ted adequate [facility] Anisocytosis Few [facility] Polychromasia Rare [facility] Ovalocytes Few [facility] Specimen Performing Organization Address City/[facility] Phone Number [facility] DEPARTMENT [address] [place] [address] PATHOLOGY AND GENOMIC MEDICINE [address] * Lactic acid level, SEPSIS - Now and repeat 2x every 3 hours (01/28/2019 6:50 AM CDT) Only the most recent of 6 results within the time period is included. Lactic acid 1.7 0.5 - 2.2 mmol/L [facility] Specimen Plasma specimen Performing Organization Address City/[facility] Services[facility] Phone Number [facility] DEPARTMENT [address] [place] [phone] PATHOLOGY AND GENOMIC MEDICINE [address] * Comprehensive metabolic panel (01/28/2019 6:50 AM CDT) Only the most recent of 8 results within the time period is included. Sodium 142 135 - 148 mEq/L [facility] Potassium 3.9 3.5 - 5.0 mEq/L [facility] Chloride 114 (H) 98 - 112 mEq/L [facility] CO2 15 (L) 24 - 31 mEq/L [facility] Anion gap 13@ANIO 7 - 15 mEq/L [facility] BUN 15 6 - 20 mg/dL [facility] Creatinine 1.20 0.70 - 1.20 mg/dL [facility] Glucose 153 (H) 65 - 99 mg/dL [facility] Calcium 9.5 8.3 - 10.2 mg/dL [facility] Protein 6.6 6.3 - 8.3 g/dL [place] Comment: [facility] 4.6-7.0 g/dL 1 week 4.4-7.6 g/dL 7 months-1year 5.1-7.3 g/dL 1-2 years5.6-7 .5 g/dL >3 years6.0-8 .0 g/dL 18-150 6.3-8.3 g/dL Albumin 3.7 3.5 - 5.0 g/dL [facility] A/G ratio 1.3 0.7 - 3.8 [facility] Alkaline 89 40 - 129 U/L [place] phosphatase [facility] AST 13 10 - 50 U/L [facility] ALT 12 5 - 50 U/L [facility] Total bilirubin <0.2 0.0 - 1.2 mg/dL [facility] Specimen Plasma specimen Performing Organization Address City/State/Zipcode [place] Number [place] [address] [place] [address] PATHOLOGY AND GENOMIC MEDICINE [facility] [address] [place] [phone] [facility] * Gram stain (01/27/2019 9:44 PM CDT) Only the most recent of 5 results within the time period is included. Gram stain No WBC's or organisms seen. [place] result Comment: [facility] Specimen Information HOSPITAL Specimen Source: Urine Specimen Site: Clean catch Specimen Urine Performing Organization Address City/[facility]/Zipcode Phone Number [facility] DEPARTMENT OF [address] [place] [address] PATHOLOGY AND GENOMIC MEDICINE [address] [address] HOSPITAL * Urine culture (01/27/2019 9:44 PM CDT) Only the most recent of 5 results within the time period is included. Urine culture Mixed kassidy <=10-3 col/cc [place] isolate Comment: [facility] Specimen Information HOSPITAL Specimen Source: Urine Specimen Site: Clean catch Specimen Urine Performing Organization Address City/[facility] Services[facility] Phone Number [facility] DEPARTMENT OF [address] [place] [address] PATHOLOGY AND GENOMIC MEDICINE [phone] [place] [address] * Urinalysis screen and microscopy, with reflex to culture (01/27/2019 9:30 PM CDT) Only the most recent of 5 results within the time period is included. Specimen site Clean catch [facility] Color, UA Yellow [facility] Appearance, UA Cloudy [facility] Specific 1.010 1.001 - 1.035 [place] gravity, UA [facility] pH, UA 8.0 5.0 - 8.5 [facility] Protein, UA Negative Negative [facility] Glucose, UA Negative Negative [facility] Ketones, UA Negative Negative [facility] Bilirubin, UA Negative Negative [facility] Blood, UA Moderate (A) Negative [facility] Nitrite, UA Negative Negative [facility] Urobilinogen, Negative <2.0 [facility] Leukocyte Moderate (A) Negative [place] esterase, UA [facility] Epithelial Moderate Few /HPF [place] cells, UA [facility] Round Few 0 - 1 /HPF [place] epithelial [facility] cells, [facility] WBC, UA 11-20 (H) 0 - 1 /HPF [facility] RBC, UA 21-40 (H) 0 - 5 /HPF [facility] Bacteria, UA Few None seen [facility] Yeast, UA None seen [facility] Yeast with None seen [place] pseudohyphae, [facility] Amorphous Moderate [place] crystals [facility] Specimen Urine Performing Organization Address [facility] Phone Number [facility] DEPARTMENT OF [address] [place], [place] [address] * Partial thromboplastin time, activated (01/27/2019 9:30 PM CDT) Only the most recent of 4 results within the time period is included. PTT 29.8 23.0 - 36.0 sec [place] Comment: [facility] PTT therapeutic range for [facility] unfractionated heparin is 61.0-112.0 seconds which corresponds to Anti-Xa 0.3-0.7 U/ml. Specimen Blood Performing Organization Address [facility] Phone Number [facility] DEPARTMENT OF [facility] [facility] [address] * Prothrombin time with INR (01/27/2019 9:30 PM CDT) Only the most recent of 4 results within the time period is included. Prothrombin 13.3 11.5 - 14.5 sec [facility] INR 1.0 [place] Comment: [facility] The International Normalized [facility] Ratio (INR) is a therapeutic monitoring tool for patients who are stable on oral anticoagulant therapy. An INR of 2.0-3.0 is suggested for deep vein thrombosis/pulmonary embolism. Specimen Blood Performing Organization Address [facility] Phone Number [facility] DEPARTMENT OF [address] [place], [place] [address] [place] [phone] [address] * XR Chest 1 Vw Portable [...] quadrant. No acute osseous abnormalities are visualized. [facility]-[id number] Procedure Note Hm Interface, Radiology Results Incoming [...] quadrant. No acute osseous abnormalities are visualized. [facility]-[id number] Performing Organization Address City/[facility]/Zipcode Phone Number [facility] [address] [place] [address] * Renal function panel (08/24/2018 4:52 AM ENTRY MANAGER) Sodium 141 135 - 148 mEq/L [facility] Potassium 3.7 3.5 - 5.0 mEq/L [facility] Chloride 109 98 - 112 mEq/L [facility] CO2 18 (L) 24 - 31 mEq/L [facility] Anion gap 14@ANIO 7 - 15 mEq/L [facility] BUN 12 6 - 20 mg/dL [facility] Creatinine 1.20 0.70 - 1.20 mg/dL [facility] Glucose 141 (H) 65 - 99 mg/dL [facility] Calcium 9.5 8.3 - 10.2 mg/dL [facility] Albumin 4.0 3.5 - 5.0 g/dL [facility] Phosphorus 3.4 2.4 - 4.5 mg/dL [facility] Specimen Plasma specimen Performing Organization Address City/[facility] Servicescode Phone Number [facility] DEPARTMENT OF [address] [place] [address] [place] [address] PATHOLOGY AND GENOMIC MEDICINE [address] [place] [address] [facility] * Potassium level (08/21/2018 3:03 PM ENTRY MANAGER) Only the most recent of 2 results within the time period is included. Potassium 3.9 3.5 - 5.0 mEq/L [facility] Specimen Plasma specimen Performing Organization Address City/State/Zipcode Phone Number [place] [address] [place] [address] PATHOLOGY AND GENOMIC MEDICINE [facility] [address] [place] [address] [facility] * C difficile toxin (08/19/2018 12:23 PM ENTRY MANAGER) Only the most recent of 3 results within the time period is included. Clostridium No Clostridium difficle toxin [place] difficile toxin present [facility] Comment: HOSPITAL Specimen Information Specimen Source: Stool Specimen Site: Not otherwise specified Specimen Stool - Not otherwise specified Performing Organization Address [facility] [employer]/Zipcode Phone Number [facility] DEPARTMENT OF [address] [place] [address] PATHOLOGY AND GENOMIC MEDICINE [facility] [address] * [place] Small Bowel Series (08/18/2018 10:45 PM ENTRY MANAGER) Specimen Narrative Performed At EXAMINATION:[place] SMALL BOWEL [facility] CLINICAL HISTORY:Bowel obstructionlow-grade COMPARISON:None. TECHNIQUE: SMALL BOWEL SERIES was performed with barium. FINDINGS: The extrusion machine operator film demonstrates a nasogastric tube and left [...] area of the left renal collecting system/pelvis [id number] Procedure Note Interface, Radiology Results Incoming - 08/19/2018 7:25 AM ENTRY MANAGER EXAMINATION: [place] SMALL BOWEL CLINICAL HISTORY: Bowel obstruction low-grade COMPARISON: None. TECHNIQUE: SMALL BOWEL SERIES was performed with barium. FINDINGS: The extrusion machine operator film demonstrates a nasogastric tube and left [...] area of the left renal collecting system/pelvis [id number] Performing Organization Address [facility] Phone Number [facility] [address] [place] [address] * Phosphorus level (08/18/2018 5:16 AM ENTRY MANAGER) Only the most recent of 2 results within the time period is included. Phosphorus 3.1 2.4 - 4.5 mg/dL [facility] Specimen Plasma specimen Performing Organization Address [facility] Servicescoaz Phone Number [address] [place] [address] PATHOLOGY AND GENOMIC MEDICINE [address] * Magnesium level (08/18/2018 5:16 AM ENTRY MANAGER) Only the most recent of 4 results within the time period is included. Magnesium 1.8 1.6 - 2.6 mg/dL [facility] Specimen Plasma specimen Performing Organization Address [facility] Servicescoaz Phone Number [address] [place] [address] PATHOLOGY AND GENOMIC MEDICINE [address] * XR Abdomen 1 Vw Portable (08/16/2018 1:57 PM ENTRY MANAGER) Specimen Narrative Performed At EXAMINATION:XR ABDOMEN 1 VW PORTABLE [facility] CLINICAL HISTORY:Abd traumabluntunstable, Vomiting COMPARISON:08/15/2018 IMPRESSION: 1.Nasogastric tube in the region of the stomach. This is stable. Left ureteral stent. Gaseous distention of loops of bowel slightly decreased compared to the prior exam. No free air. Procedure Note Interface, Radiology Results Incoming - 08/16/2018 2:01 PM ENTRY MANAGER EXAMINATION: XR ABDOMEN 1 VW PORTABLE CLINICAL HISTORY: Abd trauma blunt unstable, Vomiting COMPARISON: 08/15/2018 IMPRESSION: 1. Nasogastric tube in the region of the stomach. This is stable. Left ureteral stent. Gaseous distention of loops of bowel slightly decreased compared to the prior exam. No free air. Performing Organization Address [facility] ServicesStor Networksaz Phone Number [email or web address] [address] [place] [address] * XR Abdomen 1 Vw (08/15/2018 6:10 AM ENTRY MANAGER) Only the most recent of 3 results [...] of the hips with bony remodeling noted. [facility]-[id number] Procedure Note Interface, Radiology Results Incoming - 08/15/2018 7:10 AM ENTRY MANAGER EXAMINATION: XR ABDOMEN 1 VW CLINICAL HISTORY: [...] of the hips with bony remodeling noted. [facility]-[id number] Performing Organization Address City/[employer] Phone Number [address] [address] * Blood culture, aerobic & anaerobic (08/14/2018 11:00 AM ENTRY MANAGER) Only the most recent of 3 results within the time period is included. Pathologist [facility] Blood culture No growth after 5 days of [place] isolate incubation. [facility] Comment: HOSPITAL Specimen Information Specimen Source: Blood Specimen Site: L INDEX FINGER Specimen Blood Performing Organization Address City/State/Zipcode Phone Number [facility] [place] [address] PATHOLOGY AND [facility] MEDICINE [address] * Respiratory pathogen panel (08/14/2018 12:37 AM ENTRY MANAGER) [facility] Respiratory Negative for all pathogens [place] pathogen panel tested: [facility] Negative for Adenovirus [facility] Negative for Coronavirus HKU1 Negative for Coronavirus [...] specified Performing Organization Address City/State/Zipcode Phone Number [facility] [place] [address] PATHOLOGY AND [facility] MEDICINE [place] [facility] * Influenza antigen test, reflex negative to RPP (08/14/2018 12:37 AM ENTRY MANAGER) [facility] Influenza Negative for Influenza A/B [place] antigen antigen. CASSANDRA OCONNELL Comment: [facility] Specimen Information Specimen Source: Nares Specimen Site: Not specified Specimen Nares - Not specified Performing Organization Address City/State/Zipcode Phone Number [address] [place] [phone] PATHOLOGY AND [address] * ECG 12 lead (08/14/2018 12:06 AM ENTRY MANAGER) Only the most recent of 2 results within the time period is included. Ventricular 129 [facility] MUSE rate Atrial rate 129 [facility] MUSE MO interval 142 [facility] MUSE QRSD interval 78 [...] Specimen Narrative Performed At Performing Organization Address City/[facility] Servicescode Phone Number [facility] [address] [place] [address] * B natriuretic peptide (08/14/2018 12:00 AM ENTRY MANAGER) Pathologist [facility] BNP 35 0 - 100 pg/mL [facility] Specimen Performing Organization Address City/[facility] Servicescode Phone Number [address] [place] [phone] PATHOLOGY AND [address] * Troponin (08/13/2018 11:38 PM ENTRY MANAGER) Pathologist [facility] Troponin <0.300 0.000 - 0.300 ng/mL [place] Comment: [facility] 0.30 - 1.49 [facility] ng/mlMay indicate increased risk of acute coronary syndrome. >=1.5 ng/ml Consistent with acute myocardial infarction. The diagnostic value of a single normal or non-diagnostic result is questionable.Serial samples at 2-6 hour intervals are required to rule out acute myocardial injury. Specimen Plasma specimen Performing Organization Address City/[facility]/Zipcode Phone Number [address] [place] [address] PATHOLOGY AND GENOMIC MEDICINE [address] * Lipase level (08/13/2018 11:38 PM ENTRY MANAGER) Only the most recent of 3 results within the time period is included. Lipase 11 (L) 13 - 60 U/L [facility] Specimen Plasma specimen Performing Organization Address [facility] Servicescode Phone Number [facility] [address] [place] [address] PATHOLOGY AND GENOMIC MEDICINE [address] * Creatine kinase, total (CPK) (08/13/2018 11:38 PM ENTRY MANAGER) Only the most recent of 2 results within the time period is included. Creatine kinase 55 39 - 308 U/L [facility] Specimen Plasma specimen Performing Organization Address [facility] Servicescoaz Phone Number [facility] [place] [address] PATHOLOGY AND GENOMIC MEDICINE [address] * CT Abdomen Pelvis Wo Contrast (08/13/2018 10:44 PM ENTRY MANAGER) Only the most recent of 3 results [...] left renal collecting system, possibly proteinaceous debris. [id number] Findings were discussed with Dr. AKIRA GARCIA at 08/13/2018 10:54 PM. Procedure Note [facility], Radiology Results Incoming - 08/13/2018 10:58 PM ENTRY MANAGER EXAMINATION: CT ABDOMEN PELVIS WO CONTRAST CLINICAL [...] left renal collecting system, possibly proteinaceous debris. [facility]-[id number] Findings were discussed with Dr. AKIRA GARCIA at 08/13/2018 10:54 PM. Performing Organization Address City/State/Zipcode Phone Number [facility] [address] [place] [address] * ECG ED Preliminary Interpretation - Not an Order (08/13/2018 9:46 PM ENTRY MANAGER) Only the most recent of 2 results within the time period is included. Narrative Performed At Akira Garcia MD 08/14/20182:17 AM ECG ED Preliminary Interpretation - Not an Order Performed by: Akira Garcia MD Authorized by: Akira Garcia MD ECG reviewed by ED Physician in the absence of a car audio installer: yes Interpretation: Interpretation: abnormal Quality: Tracing quality:Limited by artifact Rate: ECG rate:129 ECG rate assessment: tachycardic Rhythm: Rhythm: sinus tachycardia QRS: QRS axis:Left QRS intervals:Normal Conduction: Conduction: normal ST segments: ST segments:Non-specific T waves: T waves: non-specific * CRITICAL CARE (08/13/2018 9:46 PM ENTRY MANAGER) Narrative Performed At Akira Garcia MD 08/14/20182:17 [...] Occult blood, Positive for Occult blood (A) [facility] stool Comment: DEPARTMENT OF Specimen Information PATHOLOGY AND Specimen Source: Stool GENOMIC Specimen Site: [facility] MEDICINE Specimen [facility] Performing Organization Address City/State/Zipcode Phone Number [facility] [place] [address] [place] [address] PATHOLOGY AND GENOMIC MEDICINE * CT Abdomen [...] and bilateral renal stones. 3. Intestinal malrotation. [facility]-[id number] Procedure Note [facility], Radiology Results Incoming - 05/03/2018 11:50 [...] and bilateral renal stones. 3. Intestinal malrotation. [facility]-[id number] Performing Organization Address City/[facility]/Zipcode Phone Number [facility] [address] [place] [address] * Estimated GFR (05/01/2018 11:10 PM CDT) Only the most recent of 6 results within the time period is included. GFR Non Af Amer 83 mL/min/1.73 m2 [facility] DEPARTMENT OF PATHOLOGY AND GENOMIC MEDICINE GFR Af Amer >90 mL/min/1.73 m2 [facility] Comment: DEPARTMENT OF Chronic kidney disease: <60 [...] Americans. Specimen Plasma specimen Performing Organization Address [facility] Servicesco[facility] Phone Number [facility] [place] [address] [place] [address] [place] [address] PATHOLOGY AND [facility] * Amylase level (05/01/2018 11:10 PM CDT) Amylase 28 13 - 73 U/L [facility] DEPARTMENT OF PATHOLOGY AND GENOMIC MEDICINE Specimen Plasma specimen Performing Organization Address [facility] Services[facility] Phone Number [address] [place] [address] PATHOLOGY AND [facility] * NM Renal Scan Wflow Funct Sgl [...] the left kidney clears normally after Lasix. [id number] Procedure Note Interface, Radiology Results Incoming - [...] the left kidney clears normally after Lasix. [facility]-[id number] Performing Organization Address City/State/Zipcode Phone Number [facility] [address] [place] [address] * Hepatic function panel (04/19/2018 11:38 PM CDT) Albumin 4.7 3.5 - 5.0 g/dL [facility] DEPARTMENT OF PATHOLOGY AND GENOMIC MEDICINE Total bilirubin 0.8 0.0 - 1.2 mg/dL [facility] DEPARTMENT OF PATHOLOGY AND GENOMIC MEDICINE Bilirubin <0.1 0.0 - 0.3 mg/dL [facility] direct DEPARTMENT OF PATHOLOGY AND GENOMIC MEDICINE Alkaline 140 (H) 40 - 129 U/L [facility] phosphatase DEPARTMENT OF PATHOLOGY AND GENOMIC MEDICINE Protein 8.8 (H) 6.3 - 8.3 g/dL [facility] Comment: DEPARTMENT OF PATHOLOGY AND 4.6-7.0 g/dL GENOMIC 1 MEDICINE week 4.4-7.6 g/dL 7 months-1year 5.1-7.3 g/dL 1-2 years5.6-7 .5 g/dL >3 years6.0-8 .0 g/dL 18-150 6.3-8.3 g/dL ALT 29 5 - 50 U/L [facility] DEPARTMENT OF PATHOLOGY AND GENOMIC MEDICINE AST 23 10 - 50 U/L [facility] DEPARTMENT OF PATHOLOGY AND GENOMIC MEDICINE Specimen Plasma specimen Performing Organization Address City/State/Zipcode Phone Number [facility] DEPARTMENT [address] [place] [address] PATHOLOGY AND GENOMIC MEDICINE after 03/23/2018 Insurance Type Payer Benefit Subscriber ID Effective Phone Address Plan / Dates Group [facility] DUAL xxxxxxxxx 2017-P COMPLETE resent MCR [facility] xxxxxxxxx 2015-P COMM STAR+ resent CARMELO Advance Directives Patient has advance care planning documents, and code status on file. For more i nformation, please contact: Gio Díaz [address] [place] [address] Date Inactivated Comments Code Status Date Activated [...]
[2019-03-24 17:30] VITALS: BP 103/76
--- NOTE | 2019-05-19 04:58 | Operative Report ---
DATE OF PROCEDURE: 03/24/2019 SURGEON: Edgar Dangelo MD PREOPERATIVE DIAGNOSES: 1. Left nephrolithiasis. 2. Left hydronephrosis. 3. Left indwelling ureteral stent. POSTOPERATIVE DIAGNOSES: 1. Left nephrolithiasis. 2. Left hydronephrosis. 3. Left indwelling ureteral stent. OPERATIONS PERFORMED: 1. Cystourethroscopy with complicated removal of left indwelling ureteral stent (separate procedure performed with separate scope for the diagnosis of stent). 2. Complicated and extensive left ureteropyeloscopy with stone manipulation and extraction (separate extensive procedure performed for multiple and countless left-sided stones). 3. Radiological services for supervision and interpretation of ureteroscopy. 4. Cystourethroscopy with insertion of left indwelling ureteral stent (separate procedure performed to relieve the hydronephrosis). 5. Interpretation of retrograde ureteropyelography. 6. Supervision of fluoroscopy, no radiologist present. ANESTHESIA: General. COMPLICATIONS: None. CLINICAL SUMMARY: Arturo Medina is a 38-year-old man with large left-sided urolithiasis. He has a stent in place and he is brought for the above procedures. He and his mother are aware of the risks of bleeding, infection, injury to adjacent structures, need for additional procedures, and elected to proceed. OPERATIVE PROCEDURE IN DETAIL: Informed consent was verified. Arturo Medina was properly identified, taken to the operating room, and placed on the cystoscopy table in supine position. Anesthesia was uneventfully begun. The patient was then carefully and gently repositioned in dorsal lithotomy position with all pressure points well padded. His genitalia were prepared and draped in usual sterile fashion. The cystoscope sheath with a visual obturator in place was atraumatically inserted in the patient's urethra and was guided down the unremarkable urethra through the prostate bed and into the patient's bladder. We identified a stent emerging from the left ureteral orifice. The stent was heavily encrusted. A guidewire was then placed alongside the stent and guided to the level of the patient's kidney. The stent was then grasped, completely removed and discarded. The flexible ureteroscopy sheath was utilized. It was atraumatically inserted and brought to the level of the proximal ureter with fluoroscopic guidance. Flexible ureteroscopy was then performed. Contrast was injected. There were countless stones and stone fragments noted within the patient's kidney. Innumerable passes with the ureteroscope were then made through the flexible ureteroscopy sheath. This tool was utilized in order to avoid ureteral injury. We extracted a tremendous amount of stone burden and at the end of the procedure, it seems like only fine sand remained within the kidney. With cystoscopic fluoroscopic guidance, a left-sided indwelling ureteral stent was then placed. It was coiled in the patient's kidneys as well as the patient's bladder. The retaining suture was cut short. Interpretation of retrograde ureteropyelography: Contrast was instilled in a retrograde fashion via the ureteroscope. There was chronic-appearing fullness of the left-sided collecting system with a filling defect corresponding to the stones. The stent was in good position and coiled the patient's kidneys as well as the patient's bladder at the end of the case. The patient's bladder was drained. The cystoscope was withdrawn. Belladonna and opium suppository was placed. The patient was uneventfully reversed from anesthesia and taken to recovery room in stable condition. There were no complications during the procedure. He tolerated the procedure well. Plans will be to return the patient to the operating room to remove his stent, perform ureteroscopy, and hopefully render the patient stent free and stone free. MD FRANCISCO Mustafa/[facility] /[id number]
== END | disposition home or self-care (01) ==
LOC: OR 12:05
PROVIDERS: ATTEND Urology
DX: N13.30 Unspecified hydronephrosis (principal); N20.0 Calculus of kidney; Z46.6 Encounter for fitting and adjustment of urinary device; E11.22 Type 2 diabetes mellitus with diabetic chronic kidney disease; N18.9 Chronic kidney disease, unspecified; N39.0 Urinary tract infection, site not specified; R35.1 Nocturia; N40.1 Benign prostatic hyperplasia with lower urinary tract symptoms; N39.41 Urge incontinence; G80.9 Cerebral palsy, unspecified; G91.9 Hydrocephalus, unspecified; R00.1 Bradycardia, unspecified; R05 Cough; Z88.6 Allergy status to analgesic agent; Z01.810 Encounter for preprocedural cardiovascular examination; Z01.812 Encounter for preprocedural laboratory examination; Z01.818 Encounter for other preprocedural examination; Z79.84 Long term (current) use of oral hypoglycemic drugs; Z84.1 Family history of disorders of kidney and ureter
CPT/HCPCS: 36415 ×2; 52332; 52352; 71046; 74420; 80048; 82948; 85025; 87086; 88300; 93005; C1766; C2617; J2001; J2250; J2405; J2543; J2550; J2704; J3010; Q9967

== ENCOUNTER → 2021-08-06 | Outpatient (CLI) | payer MEDICARE ==
[~2021-08-06] MED LIST changes: -B&O 60MG R/S 60 MG SUPP PR ONE; -EPHEDRINE SULFATE INJ 50 MG/ML VIAL ONE; -FENTANYL CITRATE/PF 100MCG/2 ML INJ ONE; -IOPAMIDOL 610MG/1ML 300 MG/ML VIAL IV ONE; -LIDOCAINE HCL 2% LOCAL INJ 5 ML SDV VIAL INJ ONE; -MIDAZOLAM HCL 2 MG/2 ML VIAL ONE; -ONDANSETRON HCL INJ 2MG/ML 2ML 2 MG/ML VIAL ONE; -PIPER-TAZ 3.375 GM 50 ML ONE; -PROMETHAZINE HCL (IM) 25 MG/ML VIAL ONE; -PROPOFOL IV EMULSION 10 MG/ML 20 ML VIAL ONE; -SEVOFLURANE INHAL SOLN 250 ML PEN BTL ONE
== END ==
LOC: NM 14:07
PROVIDERS: ATTEND Urology
DX: N20.0 Calculus of kidney (principal)
CPT/HCPCS: 74018; 78707; A9562

== ENCOUNTER → 2021-08-27 | Day surgery (SDC) | payer MEDICARE ==
[2021-08-25 15:22] LABS: BASOPHILS # (AUTO) 0.1 (0.0-0.1); BASOPHILS % 0.9 % (0.0-1.0); EOSINOPHILS # (AUTO) 0.1 (0.0-0.4); EOSINOPHILS % 1.8 % (0.0-6.0); HEMATOCRIT 55.1 % (38.2-49.6); HEMOGLOBIN 16.9 g/dL (14.0-18.0); LYMPHOCYTES # (AUTO) 1.5 (1.0-3.2); LYMPHOCYTES % 22.2 % (18.0-39.1); MEAN CORPUSCULAR HEMOGLOBIN 26.7 pg (28-32); MEAN CORPUSCULAR HGB CONC 30.7 g/dL (31-35); MEAN CORPUSCULAR VOLUME 87.2 fL (81-99); MONOCYTES # (AUTO) 0.4 (0.2-0.8); MONOCYTES % 5.7 % (4.4-11.3); NEUTROPHILS # (AUTO) 4.7 (2.1-6.9); NEUTROPHILS % 68.8 % (38.7-80.0); PLATELET COUNT 201 x10e3/uL (140-360); RED BLOOD COUNT 6.32 x10e6/uL (4.3-5.7); RED CELL DISTRIBUTION WIDTH 14.3 % (11.7-14.4)
[2021-08-25 15:50] LABS: ALBUMIN 3.8 g/dL (3.5-5.0); ALBUMIN/GLOBULIN RATIO 1.1 (0.8-2.0); ANION GAP 14.1 mmol/L (8-16); CALCIUM 8.5 mg/dL (8.4-10.2); CREATININE, SERUM 1.42 mg/dL (0.72-1.25); POTASSIUM 4.1 mmol/L (3.5-5.1)
[~2021-08-27] MED LIST changes: +BELLADONNA/OPIUM 30 MG SUPP RC ONE; +FENTANYL CITRATE/PF 100MCG/2 ML INJ ONE; +GENTAMICIN 80MG/NS 100 ML 200 ML IV ONE; +IOPAMIDOL 300MG/ML 50ML INFUS..BTL IV ONE; +MAGNESIUM OXID400 MG PO; +MEPERIDINE HCL INJ 25 MG/ML VIAL ONE; +VITAMIN D31 GM PO
[2021-08-27 15:00] VITALS: BP 157/93
== END | disposition home or self-care (01) ==
LOC: OR 10:25
PROVIDERS: ATTEND Urology
DX: N20.0 Calculus of kidney (principal); N13.30 Unspecified hydronephrosis; N21.0 Calculus in bladder; E11.9 Type 2 diabetes mellitus without complications; K21.9 Gastro-esophageal reflux disease without esophagitis; K57.90 Diverticulosis of intestine, part unspecified, without perforation or abscess without bleeding; G80.9 Cerebral palsy, unspecified; R56.9 Unspecified convulsions; F41.9 Anxiety disorder, unspecified; F32.A Depression, unspecified; Z88.6 Allergy status to analgesic agent; Z88.0 Allergy status to penicillin; Z46.6 Encounter for fitting and adjustment of urinary device; Z01.810 Encounter for preprocedural cardiovascular examination; Z01.812 Encounter for preprocedural laboratory examination; Z01.818 Encounter for other preprocedural examination; Z20.822 Contact with and (suspected) exposure to COVID-19; Z79.84 Long term (current) use of oral hypoglycemic drugs
CPT/HCPCS: 36415 ×2; 50590; 52318; 52332; 74018; 80053; 82948; 83970; 84550; 85025; 87086; 88300; 93005; C1758; C2617; J1580; J2175; J3010; Q9967; U0002

== ENCOUNTER → 2022-01-09 | Day surgery (SDC) | payer MEDICARE ==
[~2022-01-09] MED LIST changes: -BELLADONNA/OPIUM 30 MG SUPP RC ONE; +DEXAMETHASONE SOD PHOS INJ 4 MG/ML SDV ONE; +EPHEDRINE SULFATE INJ 50 MG/ML VIAL ONE; -IOPAMIDOL 300MG/ML 50ML INFUS..BTL IV ONE; +LIDOCAINE HCL 2% LOCAL INJ 5 ML SDV VIAL INJ ONE; -MEPERIDINE HCL INJ 25 MG/ML VIAL ONE; +MEROPENEM 1 GM VIAL ONE; +ONDANSETRON HCL INJ 2MG/ML 2ML 2 MG/ML VIAL ONE; +POVIDONE IODINE 0.05% 0.05 % ML PO ONE; +PROPOFOL IV EMULSION 10 MG/ML 20 ML VIAL ONE; +SEVOFLURANE INHAL SOLN 250 ML PEN BTL ONE
[2022-01-09 08:06] LABS: BASOPHILS # (AUTO) 0.1 (0.0-0.1); BASOPHILS % 0.9 % (0.0-1.0); EOSINOPHILS # (AUTO) 0.1 (0.0-0.4); EOSINOPHILS % 1.5 % (0.0-6.0); HEMATOCRIT 53.2 % (38.2-49.6); HEMOGLOBIN 16.6 g/dL (14.0-18.0); LYMPHOCYTES # (AUTO) 1.6 (1.0-3.2); LYMPHOCYTES % 23.1 % (18.0-39.1); MEAN CORPUSCULAR HEMOGLOBIN 26.7 pg (28-32); MEAN CORPUSCULAR HGB CONC 31.2 g/dL (31-35); MEAN CORPUSCULAR VOLUME 85.7 fL (81-99); MONOCYTES # (AUTO) 0.5 (0.2-0.8); MONOCYTES % 7.4 % (4.4-11.3); NEUTROPHILS # (AUTO) 4.6 (2.1-6.9); PLATELET COUNT 219 x10e3/uL (140-360); RED BLOOD COUNT 6.21 x10e6/uL (4.3-5.7); RED CELL DISTRIBUTION WIDTH 14.6 % (11.7-14.4)
[2022-01-09 08:31] LABS: ANION GAP 14.5 mmol/L (8-16); CALCIUM 9.3 mg/dL (8.4-10.2); CREATININE, SERUM 1.27 mg/dL (0.72-1.25); POTASSIUM 3.5 mmol/L (3.5-5.1)
[2022-01-09 14:48] VITALS: BP 124/76
== END | disposition home or self-care (01) ==
LOC: OR 07:15
PROVIDERS: ATTEND Urology
DX: N20.0 Calculus of kidney (principal); Z96.0 Presence of urogenital implants; I49.8 Other specified cardiac arrhythmias; E11.9 Type 2 diabetes mellitus without complications; K21.9 Gastro-esophageal reflux disease without esophagitis; R56.9 Unspecified convulsions; R07.9 Chest pain, unspecified; Z88.6 Allergy status to analgesic agent; Z88.4 Allergy status to anesthetic agent; Z88.0 Allergy status to penicillin; Z20.822 Contact with and (suspected) exposure to COVID-19; Z79.84 Long term (current) use of oral hypoglycemic drugs; Z79.899 Other long term (current) drug therapy; Z86.16 Personal history of COVID-19
CPT/HCPCS: 36415; 50590; 74018; 80048; 82948; 84550; 85025; 93005; J1100; J1580; J2001; J2185; J2405; J2704; J3010; U0002

== ENCOUNTER → 2022-03-06 | Day surgery (SDC) | payer MEDICARE ==
[~2022-03-06] MED LIST changes: +B&O 60MG R/S 60 MG SUPP PR ONE; +BELLADONNA/OPIUM 30 MG SUPP RC ONE; -DEXAMETHASONE SOD PHOS INJ 4 MG/ML SDV ONE; +IOPAMIDOL 610MG/1ML 300 MG/ML VIAL IV ONE; -MEROPENEM 1 GM VIAL ONE; +PIPERACILLIN/TAZOBACTAM 3.375 GM VIAL ONE
[2022-03-06 08:08] LABS: BASOPHILS # (AUTO) 0.1 (0.0-0.1); BASOPHILS % 0.8 % (0.0-1.0); EOSINOPHILS # (AUTO) 0.1 (0.0-0.4); EOSINOPHILS % 1.5 % (0.0-6.0); HEMATOCRIT 50.1 % (38.2-49.6); HEMOGLOBIN 15.9 g/dL (14.0-18.0); LYMPHOCYTES # (AUTO) 1.5 (1.0-3.2); LYMPHOCYTES % 23.8 % (18.0-39.1); MEAN CORPUSCULAR HEMOGLOBIN 26.9 pg (28-32); MEAN CORPUSCULAR HGB CONC 31.7 g/dL (31-35); MEAN CORPUSCULAR VOLUME 84.9 fL (81-99); MONOCYTES # (AUTO) 0.5 (0.2-0.8); MONOCYTES % 7.9 % (4.4-11.3); NEUTROPHILS # (AUTO) 4.2 (2.1-6.9); NEUTROPHILS % 65.5 % (38.7-80.0); PLATELET COUNT 255 x10e3/uL (140-360)
[2022-03-06 09:04] LABS: ANION GAP 15.9 mmol/L (8-16); CALCIUM 9.2 mg/dL (8.4-10.2); CREATININE, SERUM 1.34 mg/dL (0.72-1.25); POTASSIUM 3.9 mmol/L (3.5-5.1)
[2022-03-06 12:35] VITALS: BP 129/81
== END | disposition home or self-care (01) ==
LOC: OR 07:22
PROVIDERS: ATTEND Urology
DX: N20.0 Calculus of kidney (principal); N13.30 Unspecified hydronephrosis; N39.0 Urinary tract infection, site not specified; Z46.6 Encounter for fitting and adjustment of urinary device; G80.9 Cerebral palsy, unspecified; E11.9 Type 2 diabetes mellitus without complications; K21.9 Gastro-esophageal reflux disease without esophagitis; F41.9 Anxiety disorder, unspecified; Z88.6 Allergy status to analgesic agent; Z88.4 Allergy status to anesthetic agent; Z88.0 Allergy status to penicillin; Z20.822 Contact with and (suspected) exposure to COVID-19; Z79.84 Long term (current) use of oral hypoglycemic drugs; Z79.899 Other long term (current) drug therapy; Z99.3 Dependence on wheelchair
CPT/HCPCS: 0223U; 36415; 50590; 74018; 80048; 82948; 84550; 85025; 87086; 87186; C1758; C1769; C2617; J1580; J2001; J2405; J2543; J3010

== ENCOUNTER 2022-06-17 07:18 | Inpatient (IN) | payer MEDICARE ==
[~2022-06-17] VITALS: Ht 162.6 cm; Wt 70.3 kg
[~2022-06-17 07:18] MED LIST changes: -B&O 60MG R/S 60 MG SUPP PR ONE; -BELLADONNA/OPIUM 30 MG SUPP RC ONE; -EPHEDRINE SULFATE INJ 50 MG/ML VIAL ONE; -FENTANYL CITRATE/PF 100MCG/2 ML INJ ONE; -GENTAMICIN 80MG/NS 100 ML 200 ML IV ONE; -IOPAMIDOL 610MG/1ML 300 MG/ML VIAL IV ONE; -LIDOCAINE HCL 2% LOCAL INJ 5 ML SDV VIAL INJ ONE; -ONDANSETRON HCL INJ 2MG/ML 2ML 2 MG/ML VIAL ONE; -PIPERACILLIN/TAZOBACTAM 3.375 GM VIAL ONE; -POVIDONE IODINE 0.05% 0.05 % ML PO ONE; -PROPOFOL IV EMULSION 10 MG/ML 20 ML VIAL ONE; -SEVOFLURANE INHAL SOLN 250 ML PEN BTL ONE
[2022-06-17] MEDS ORDERED: GENTAMICIN 80MG/NS 100 ML 200 ML IV ONE (07:53)
[2022-06-17] MEDS ORDERED: MEROPENEM 1 GM VIAL ONE (07:54)
[2022-06-17 08:30] LABS: BASOPHILS # (AUTO) 0.1 (0.0-0.1); BASOPHILS % 0.8 % (0.0-1.0); EOSINOPHILS # (AUTO) 0.1 (0.0-0.4); EOSINOPHILS % 1.4 % (0.0-6.0); HEMATOCRIT 47.4 % (38.2-49.6); HEMOGLOBIN 14.2 g/dL (14.0-18.0); LYMPHOCYTES # (AUTO) 1.3 (1.0-3.2); LYMPHOCYTES % 20.5 % (18.0-39.1); MEAN CORPUSCULAR HEMOGLOBIN 26.9 pg (28-32); MEAN CORPUSCULAR VOLUME 89.9 fL (81-99); MONOCYTES # (AUTO) 0.5 (0.2-0.8); MONOCYTES % 7.5 % (4.4-11.3); NEUTROPHILS # (AUTO) 4.4 (2.1-6.9); NEUTROPHILS % 69.6 % (38.7-80.0); PLATELET COUNT 185 x10e3/uL (140-360); RED BLOOD COUNT 5.27 x10e6/uL (4.3-5.7); RED CELL DISTRIBUTION WIDTH 14.2 % (11.7-14.4)
[2022-06-17 08:51] LABS: ANION GAP 15.6 mmol/L (8-16); CREATININE, SERUM 1.1 mg/dL (0.72-1.25); POTASSIUM 3.6 mmol/L (3.5-5.1)
[2022-06-17] MEDS ORDERED: IOPAMIDOL 300MG/ML 50ML INFUS..BTL IV ONE (11:20)
[2022-06-17] MEDS ORDERED: ONDANSETRON HCL INJ 2MG/ML 2ML 2 MG/ML VIAL IV PRN (13:00)
[2022-06-17] MEDS ORDERED: TRAMADOL HCL 50 MG TAB PO PRN (13:00)
[2022-06-17] MEDS ORDERED: PHENAZOPYRIDINE HCL 100 MG TAB PO PRN (13:00)
[2022-06-17] MEDS ORDERED: DIPHENHYDRAMINE HCL 25 MG CAP PO PRN (13:00)
[2022-06-17] MEDS: SODIUM CHLORIDE 0.9% 1000ML 1,000 ML IV SCH ×2 (14:00→23:35)
[2022-06-17 14:32] VITALS: BP 132/81
[2022-06-17] MEDS: FLUCONAZOLE 200 MG/100 ML 100 ML IV SCH (15:30)
[2022-06-17 15:33] VITALS: BP 132/81
[2022-06-17 15:41] VITALS: BP 132/81
[2022-06-17 16:51] LABS: BASOPHILS % 0.1 % (0.0-1.0); HEMATOCRIT 47.2 % (38.2-49.6); HEMOGLOBIN 14.2 g/dL (14.0-18.0); LYMPHOCYTES # (AUTO) 0.5 (1.0-3.2); MEAN CORPUSCULAR HEMOGLOBIN 26.8 pg (28-32); MEAN CORPUSCULAR HGB CONC 30.1 g/dL (31-35); MEAN CORPUSCULAR VOLUME 89.2 fL (81-99); MONOCYTES # (AUTO) 0.1 (0.2-0.8); MONOCYTES % 1.3 % (4.4-11.3); NEUTROPHILS # (AUTO) 8.6 (2.1-6.9); NEUTROPHILS % 93.4 % (38.7-80.0); PLATELET COUNT 214 x10e3/uL (140-360); RED BLOOD COUNT 5.29 x10e6/uL (4.3-5.7); RED CELL DISTRIBUTION WIDTH 14.1 % (11.7-14.4)
[2022-06-17] MEDS ORDERED: ACETAMINOPHEN 1000 MG/100 ML IV PRN (17:00)
[2022-06-17 17:12] LABS: ANION GAP 19.5 mmol/L (8-16); CALCIUM 8.8 mg/dL (8.4-10.2); CREATININE, SERUM 1.01 mg/dL (0.72-1.25); POTASSIUM 3.5 mmol/L (3.5-5.1)
[2022-06-17] MEDS: DOCUSATE SODIUM 100 MG CAP PO SCH (17:37)
[2022-06-17] MEDS: MEROPENEM 1 GM in SODIUM CHLORIDE 0.9% 100 ML IV SCH (17:37)
[2022-06-17 20:00] VITALS: BP 105/76
[2022-06-17 20:22] VITALS: BP 105/76
[2022-06-18] VITALS (9 sets, daily range): BP systolic 103–129; BP diastolic 73–90
[2022-06-18] MEDS: MEROPENEM 1 GM in SODIUM CHLORIDE 0.9% 100 ML IV SCH ×2 (03:36→16:00)
[2022-06-18 06:01] LABS: BASOPHILS % 0.1 % (0.0-1.0); HEMATOCRIT 42.6 % (38.2-49.6); HEMOGLOBIN 13.5 g/dL (14.0-18.0); LYMPHOCYTES % 12.8 % (18.0-39.1); MEAN CORPUSCULAR HEMOGLOBIN 27.1 pg (28-32); MEAN CORPUSCULAR HGB CONC 31.7 g/dL (31-35); MEAN CORPUSCULAR VOLUME 85.5 fL (81-99); MONOCYTES # (AUTO) 0.5 (0.2-0.8); MONOCYTES % 6.1 % (4.4-11.3); NEUTROPHILS % 80.6 % (38.7-80.0); PLATELET COUNT 208 x10e3/uL (140-360); RED BLOOD COUNT 4.98 x10e6/uL (4.3-5.7); RED CELL DISTRIBUTION WIDTH 14.4 % (11.7-14.4)
[2022-06-18 06:08] LABS: ANION GAP 13.7 mmol/L (8-16); CALCIUM 8.6 mg/dL (8.4-10.2); CREATININE, SERUM 0.97 mg/dL (0.72-1.25); POTASSIUM 3.7 mmol/L (3.5-5.1)
[2022-06-18] MEDS: SODIUM CHLORIDE 0.9% 1000ML 1,000 ML IV SCH ×2 (08:18→19:00)
[2022-06-18] MEDS: DOCUSATE SODIUM 100 MG CAP PO SCH ×2 (08:19→16:41)
[2022-06-18] MEDS ORDERED: TAMSULOSIN HCL 0.4 MG CAP PO PRN (09:00)
[2022-06-18] MEDS ORDERED: TRAMADOL HCL 50 MG TAB PO PRN (09:00)
[2022-06-18] MEDS ORDERED: SITAGLIPTIN 100 MG TAB PO SCH (09:00)
[2022-06-18] MEDS ORDERED: TIZANIDINE HCL 4 MG TAB PO PRN (09:00)
[2022-06-18] MEDS: GLIPIZIDE 5 MG TAB PO SCH ×2 (09:30→16:41)
[2022-06-18] MEDS ORDERED: ONDANSETRON HCL 4 MG ORAL DISINTEGRATING TAB PO PRN (10:30)
[2022-06-18] MEDS: INSULIN LISPRO 100 UNIT/1 ML 3ML VIAL SQ SCH ×3 (12:30→19:53)
[2022-06-18] MEDS: OXYBUTYNIN CHLORIDE 5 MG TAB PO SCH ×2 (13:09→20:43)
[2022-06-18] MEDS: MAGNESIUM OXIDE 400 MG TAB PO SCH (13:09)
[2022-06-18] MEDS: FLUCONAZOLE 200 MG/100 ML 100 ML IV SCH (15:24)
[2022-06-18] MEDS: LACTOBACILLUS ACIDOPHILUS CAPSULE PO SCH (16:42)
[2022-06-18] MEDS: ALPRAZOLAM 0.25 MG TAB PO SCH (20:43)
[2022-06-19] MEDS: DEXTROSE 50% SYRINGE 50 ML IV PRN ×3 (00:32→08:27)
[2022-06-19 04:25] VITALS: BP 107/84
[2022-06-19] MEDS: MEROPENEM 1 GM in SODIUM CHLORIDE 0.9% 100 ML IV SCH ×2 (04:25→19:10)
[2022-06-19 04:47] LABS: BASOPHILS % 0.3 % (0.0-1.0); EOSINOPHILS # (AUTO) 0.1 (0.0-0.4); EOSINOPHILS % 0.6 % (0.0-6.0); HEMATOCRIT 45.1 % (38.2-49.6); HEMOGLOBIN 13.9 g/dL (14.0-18.0); LYMPHOCYTES # (AUTO) 2.4 (1.0-3.2); LYMPHOCYTES % 25.2 % (18.0-39.1); MEAN CORPUSCULAR HEMOGLOBIN 26.7 pg (28-32); MEAN CORPUSCULAR HGB CONC 30.8 g/dL (31-35); MEAN CORPUSCULAR VOLUME 86.7 fL (81-99); MONOCYTES # (AUTO) 0.7 (0.2-0.8); MONOCYTES % 7.1 % (4.4-11.3); NEUTROPHILS # (AUTO) 6.5 (2.1-6.9); NEUTROPHILS % 66.7 % (38.7-80.0); PLATELET COUNT 227 x10e3/uL (140-360)
[2022-06-19 05:03] LABS: ANION GAP 12.9 mmol/L (8-16); CALCIUM 8.4 mg/dL (8.4-10.2); CREATININE, SERUM 0.88 mg/dL (0.72-1.25)
[2022-06-19 05:10] LABS: POTASSIUM 2.9 mmol/L (3.5-5.1)
[2022-06-19] MEDS: INSULIN LISPRO 100 UNIT/1 ML 3ML VIAL SQ SCH ×4 (07:30→21:20)
[2022-06-19] MEDS: GLIPIZIDE 5 MG TAB PO SCH (07:55)
[2022-06-19 08:28] VITALS: BP 107/84
[2022-06-19] MEDS: DOCUSATE SODIUM 100 MG CAP PO SCH ×2 (08:28→17:56)
[2022-06-19] MEDS: MAGNESIUM OXIDE 400 MG TAB PO SCH (08:28)
[2022-06-19] MEDS: LACTOBACILLUS ACIDOPHILUS CAPSULE PO SCH ×2 (08:28→17:56)
[2022-06-19] MEDS: OXYBUTYNIN CHLORIDE 5 MG TAB PO SCH ×2 (08:28→21:20)
[2022-06-19 09:18] VITALS: BP 104/81
[2022-06-19] MEDS ORDERED: D5.45%NS/KCL 20MEQ 1,000 ML IV ONE (10:15)
[2022-06-19] MEDS ORDERED: POTASSIUM PHOSPHATE 15 MM in SODIUM CHLORIDE 0.9% 250ML 250 ML IV PRN (10:15)
[2022-06-19] MEDS ORDERED: POTASSIUM CHLORIDE 10MEQ EA PO ONE (10:30)
[2022-06-19 11:14] LABS: MAGNESIUM 1.6 MG/DL (1.3-2.1); PHOSPHORUS 2.2 MG/DL (2.3-4.7)
[2022-06-19] MEDS: MAGNESIUM SULFATE 2GM/50ML 50 ML IV PRN ×2 (12:00→14:00)
[2022-06-19 17:18] VITALS: BP 118/89
[2022-06-19] MEDS: FLUCONAZOLE 200 MG/100 ML 100 ML IV SCH (17:56)
[2022-06-19 20:00] VITALS: BP 105/74
[2022-06-19] MEDS: ALPRAZOLAM 0.25 MG TAB PO SCH (21:20)
[2022-06-20] VITALS (7 sets, daily range): BP systolic 99–119; BP diastolic 74–97
[2022-06-20] MEDS: MEROPENEM 1 GM in SODIUM CHLORIDE 0.9% 100 ML IV SCH ×2 (04:50→16:45)
[2022-06-20 05:50] LABS: BASOPHILS % 0.5 % (0.0-1.0); EOSINOPHILS # (AUTO) 0.1 (0.0-0.4); EOSINOPHILS % 1.9 % (0.0-6.0); HEMATOCRIT 44.1 % (38.2-49.6); HEMOGLOBIN 13.7 g/dL (14.0-18.0); LYMPHOCYTES # (AUTO) 2.3 (1.0-3.2); MEAN CORPUSCULAR HEMOGLOBIN 27.1 pg (28-32); MEAN CORPUSCULAR HGB CONC 31.1 g/dL (31-35); MEAN CORPUSCULAR VOLUME 87.2 fL (81-99); MONOCYTES # (AUTO) 0.6 (0.2-0.8); NEUTROPHILS # (AUTO) 4.4 (2.1-6.9); NEUTROPHILS % 58.1 % (38.7-80.0); PLATELET COUNT 248 x10e3/uL (140-360); RED BLOOD COUNT 5.06 x10e6/uL (4.3-5.7); RED CELL DISTRIBUTION WIDTH 13.9 % (11.7-14.4)
[2022-06-20 06:09] LABS: ANION GAP 11.3 mmol/L (8-16); CALCIUM 8.5 mg/dL (8.4-10.2); CREATININE, SERUM 0.85 mg/dL (0.72-1.25); MAGNESIUM 1.9 MG/DL (1.3-2.1); PHOSPHORUS 2.5 MG/DL (2.3-4.7); POTASSIUM 3.3 mmol/L (3.5-5.1)
[2022-06-20] MEDS: INSULIN LISPRO 100 UNIT/1 ML 3ML VIAL SQ SCH ×4 (07:30→22:02)
[2022-06-20] MEDS ORDERED: SODIUM CHLORIDE 0.9% 100 ML ONE (07:31)
[2022-06-20] MEDS: DOCUSATE SODIUM 100 MG CAP PO SCH ×2 (09:43→16:57)
[2022-06-20] MEDS: MAGNESIUM OXIDE 400 MG TAB PO SCH (09:43)
[2022-06-20] MEDS: LACTOBACILLUS ACIDOPHILUS CAPSULE PO SCH ×2 (09:43→16:57)
[2022-06-20] MEDS: OXYBUTYNIN CHLORIDE 5 MG TAB PO SCH ×2 (09:43→21:51)
[2022-06-20] MEDS ORDERED: POTASSIUM CHLORIDE 10MEQ EA PO ONE (11:30)
[2022-06-20] MEDS: FLUCONAZOLE 200 MG/100 ML 100 ML IV SCH (15:00)
[2022-06-20] MEDS: ALPRAZOLAM 0.25 MG TAB PO SCH (21:51)
[2022-06-21] VITALS (9 sets, daily range): BP systolic 105–116; BP diastolic 76–92
[2022-06-21] MEDS: MEROPENEM 1 GM in SODIUM CHLORIDE 0.9% 100 ML IV SCH ×2 (04:32→16:13)
[2022-06-21 06:19] LABS: BASOPHILS # (AUTO) 0.1 (0.0-0.1); BASOPHILS % 0.6 % (0.0-1.0); EOSINOPHILS # (AUTO) 0.3 (0.0-0.4); HEMATOCRIT 47.3 % (38.2-49.6); HEMOGLOBIN 14.8 g/dL (14.0-18.0); LYMPHOCYTES % 34.4 % (18.0-39.1); MEAN CORPUSCULAR HEMOGLOBIN 27.1 pg (28-32); MEAN CORPUSCULAR HGB CONC 31.3 g/dL (31-35); MEAN CORPUSCULAR VOLUME 86.6 fL (81-99); MONOCYTES # (AUTO) 0.6 (0.2-0.8); MONOCYTES % 6.9 % (4.4-11.3); NEUTROPHILS # (AUTO) 4.8 (2.1-6.9); NEUTROPHILS % 54.8 % (38.7-80.0); PLATELET COUNT 208 x10e3/uL (140-360); RED BLOOD COUNT 5.46 x10e6/uL (4.3-5.7); RED CELL DISTRIBUTION WIDTH 13.7 % (11.7-14.4)
[2022-06-21 06:45] LABS: ANION GAP 13.6 mmol/L (8-16); CALCIUM 8.9 mg/dL (8.4-10.2); CREATININE, SERUM 0.85 mg/dL (0.72-1.25); POTASSIUM 3.6 mmol/L (3.5-5.1)
[2022-06-21] MEDS: INSULIN LISPRO 100 UNIT/1 ML 3ML VIAL SQ SCH ×4 (07:30→21:00)
[2022-06-21] MEDS: LACTOBACILLUS ACIDOPHILUS CAPSULE PO SCH ×2 (09:37→17:15)
[2022-06-21] MEDS: DOCUSATE SODIUM 100 MG CAP PO SCH ×2 (09:37→17:15)
[2022-06-21] MEDS: OXYBUTYNIN CHLORIDE 5 MG TAB PO SCH ×2 (09:37→22:09)
[2022-06-21] MEDS: MAGNESIUM OXIDE 400 MG TAB PO SCH (09:37)
[2022-06-21] MEDS: FLUCONAZOLE 200 MG/100 ML 100 ML IV SCH (16:14)
[2022-06-21] MEDS: ALPRAZOLAM 0.25 MG TAB PO SCH (22:08)
[2022-06-22] VITALS: BP 115/82
[2022-06-22] MEDS: Vancomycin IV 1 GM in SODIUM CHLORIDE 0.9% 250ML 250 ML IV SCH ×2 (01:27→12:15)
[2022-06-22] MEDS: MEROPENEM 1 GM in SODIUM CHLORIDE 0.9% 100 ML IV SCH ×2 (04:12→16:00)
[2022-06-22 05:36] VITALS: BP 105/65
[2022-06-22] MEDS: INSULIN LISPRO 100 UNIT/1 ML 3ML VIAL SQ SCH (07:30)
[2022-06-22 08:08] VITALS: BP 119/76
[2022-06-22 09:00] VITALS: BP 119/76
[2022-06-22] MEDS: LACTOBACILLUS ACIDOPHILUS CAPSULE PO SCH (09:35)
[2022-06-22] MEDS: MAGNESIUM OXIDE 400 MG TAB PO SCH (09:36)
[2022-06-22] MEDS: DOCUSATE SODIUM 100 MG CAP PO SCH (09:36)
[2022-06-22] MEDS: OXYBUTYNIN CHLORIDE 5 MG TAB PO SCH (09:36)
[2022-06-22 12:10] VITALS: BP 114/90
[2022-06-22] MEDS ORDERED: FLUCONAZOLE 100 MG TAB PO SCH (13:00)
[2022-06-22] MEDS ORDERED: DEXAMETHASONE SOD PHOS INJ 4 MG/ML SDV IV ONE (16:35)
[2022-06-22] MEDS ORDERED: SEVOFLURANE INHAL SOLN 250 ML PEN BTL INH ONE (16:35)
[2022-06-22] MEDS ORDERED: PROPOFOL IV EMULSION 10 MG/ML 20 ML VIAL IV ONE (16:35)
[2022-06-22] MEDS ORDERED: POVIDONE IODINE 0.05% 0.05 % ML PO ONE (16:35)
[2022-06-22] MEDS ORDERED: ONDANSETRON HCL INJ 2MG/ML 2ML 2 MG/ML VIAL IV ONE (16:35)
[2022-06-22] MEDS ORDERED: EPHEDRINE SULFATE INJ 50 MG/ML VIAL IV ONE (16:35)
[2022-06-22] MEDS ORDERED: LIDOCAINE HCL 2% LOCAL INJ 5 ML SDV VIAL INJ ONE (16:35)
== END 2022-06-22 16:36 | disposition home or self-care (01) | DRG 660 ==
LOC: OR 07:18 → PACU V 12:57 → MED/SURG 13:53
PROVIDERS: ADMIT Internal Medicine; ATTEND Internal Medicine
PROC: 0TC68ZZ Extirpation of Matter from Right Ureter, Via Natural or Artificial Opening Endoscopic (ICD-10-PCS; 2022-06-17)
PROC: BT141ZZ Fluoroscopy of Kidneys, Ureters and Bladder using Low Osmolar Contrast (ICD-10-PCS; 2022-06-17)
PROC: 0TC78ZZ Extirpation of Matter from Left Ureter, Via Natural or Artificial Opening Endoscopic (ICD-10-PCS; principal; 2022-06-17 11:40)
PROC: 0T788DZ Dilation of Bilateral Ureters with Intraluminal Device, Via Natural or Artificial Opening Endoscopic (ICD-10-PCS; 2022-06-17 11:40)
PROC: 02HV33Z Insertion of Infusion Device into Superior Vena Cava, Percutaneous Approach (ICD-10-PCS; 2022-06-18)
DX: N13.6 Pyonephrosis (principal); N20.2 Calculus of kidney with calculus of ureter; Z16.12 Extended spectrum beta lactamase (ESBL) resistance; B96.20 Unspecified Escherichia coli [E. coli] as the cause of diseases classified elsewhere; G80.9 Cerebral palsy, unspecified; B95.2 Enterococcus as the cause of diseases classified elsewhere; Z20.822 Contact with and (suspected) exposure to COVID-19; Z91.199 Patient's noncompliance with other medical treatment and regimen due to unspecified reason; E11.9 Type 2 diabetes mellitus without complications; I10 Essential (primary) hypertension; Z74.01 Bed confinement status; R39.81 Functional urinary incontinence; E11.649 Type 2 diabetes mellitus with hypoglycemia without coma; Z79.4 Long term (current) use of insulin; N31.9 Neuromuscular dysfunction of bladder, unspecified; Z88.0 Allergy status to penicillin
CPT/HCPCS: 36415; 36569; 50590; 71045; 74018; 80048; 82948; 83735; 84100; 84550; 85025; 87086; 87186; 88300; 93005; 94799; 96372; C1758; C1766; C1769; C2617; J1100; J1450; J1580; J2001; J2185; J2405; J3370; J3475; J7030; J7050; J7799

== ENCOUNTER → 2022-10-20 | Outpatient (CLI) | payer MEDICARE ==
[~2022-10-20] MED LIST changes: +FUROSEMIDE INJ 10 MG/ML 4 ML VIAL ONE
== END ==
LOC: NM 11:02
PROVIDERS: ATTEND Urology
DX: N13.30 Unspecified hydronephrosis (principal); Z87.442 Personal history of urinary calculi
CPT/HCPCS: 74176; 78708; A9562; J1940

== ENCOUNTER 2024-07-07 10:16 | Inpatient (IN) | payer MEDICARE ==
[~2024-07-07 10:16] MED LIST changes: +ELDERBERRY350 MG PO; -FUROSEMIDE INJ 10 MG/ML 4 ML VIAL ONE; +PROBIOTICS1 EACH; +SINGULAIR4 MG PO
[2024-07-07 11:05] LABS: BASOPHILS % 0.7 % (0.0-1.0); EOSINOPHILS # (AUTO) 0.1 (0.0-0.4); EOSINOPHILS % 1.8 % (0.0-6.0); HEMATOCRIT 49.9 % (38.2-49.6); HEMOGLOBIN 15.3 g/dL (14.0-18.0); LYMPHOCYTES # (AUTO) 1.3 (1.0-3.2); LYMPHOCYTES % 24.5 % (18.0-39.1); MEAN CORPUSCULAR HEMOGLOBIN 26.5 pg (28-32); MEAN CORPUSCULAR HGB CONC 30.7 g/dL (31-35); MEAN CORPUSCULAR VOLUME 86.3 fL (81-99); MONOCYTES # (AUTO) 0.4 (0.2-0.8); MONOCYTES % 7.7 % (4.4-11.3); NEUTROPHILS # (AUTO) 3.6 (2.1-6.9); NEUTROPHILS % 65.1 % (38.7-80.0); PLATELET COUNT 197 x10e3/uL (140-360); RED BLOOD COUNT 5.78 x10e6/uL (4.3-5.7); RED CELL DISTRIBUTION WIDTH 14.4 % (11.7-14.4); WHITE BLOOD COUNT 5.46 x10e3/uL (4.8-10.8)
[2024-07-07] MEDS: LACTATED RINGER'S 1,000 ML ONE (11:10)
[2024-07-07] MEDS: GENTAMICIN 80MG/NS 100 ML 200 ML IV ONE (11:11)
[2024-07-07] MEDS: MEROPENEM 1 GM VIAL ONE (11:11)
[2024-07-07 11:23] LABS: ALBUMIN 3.8 g/dL (3.5-5.0); ALBUMIN/GLOBULIN RATIO 1.1 (0.8-2.0); ANION GAP 13.8 mmol/L (8-16); BILIRUBIN,TOTAL 0.6 mg/dL (0.2-1.2); CALCIUM 9.5 mg/dL (8.4-10.2); CREATININE, SERUM 1.11 mg/dL (0.72-1.25); POTASSIUM 3.8 mmol/L (3.5-5.1); TOTAL PROTEIN 7.3 g/dL (6.5-8.1)
[2024-07-07] MEDS ORDERED: ONDANSETRON HCL INJ 2MG/ML 2ML 2 MG/ML VIAL ONE (11:30)
[2024-07-07] MEDS ORDERED: PROPOFOL IV EMULSION 10 MG/ML 20 ML VIAL ONE (11:30)
[2024-07-07] MEDS ORDERED: LIDOCAINE HCL 2% LOCAL INJ 5 ML SDV VIAL INJ ONE (11:30)
[2024-07-07] MEDS ORDERED: IOPAMIDOL 610MG/1ML 300 MG/ML VIAL IV ONE ×2 (11:44→12:52)
[2024-07-07] MEDS ORDERED: FENTANYL CITRATE/PF 100MCG/2 ML INJ ONE (12:50)
[2024-07-07] MEDS ORDERED: EPHEDRINE SULFATE INJ 50 MG/ML VIAL ONE (13:01)
[2024-07-07] MEDS ORDERED: DIPHENHYDRAMINE HCL INJ 50 MG/ML VIAL ONE (13:09)
[2024-07-07] MEDS ORDERED: FAMOTIDINE 20 MG/2 ML VIAL IV ONE (13:10)
[2024-07-07] MEDS ORDERED: ACETAMINOPHEN 1000 MG/100 ML 100 ML IV ONE (13:29)
[2024-07-07] MEDS ORDERED: PHENAZOPYRIDINE HCL 100 MG TAB PO PRN (14:30)
[2024-07-07] MEDS ORDERED: ACETAMINOPHEN 1000 MG/100 ML IV PRN (14:30)
[2024-07-07] MEDS ORDERED: ONDANSETRON HCL INJ 2MG/ML 2ML 2 MG/ML VIAL IV PRN (14:30)
[2024-07-07] MEDS: SODIUM CHLORIDE 0.9% 1000ML 1,000 ML IV SCH (15:45)
[2024-07-07 16:14] VITALS: PULSE 83; RESP 16; O2SAT 97
[2024-07-07 16:40] VITALS: BP 104/83; PULSE 102; RESP 19; TEMP 98.5; O2SAT 99
[2024-07-07 20:00] VITALS: BP 104/83; PULSE 102; RESP 19; TEMP 98.5; O2SAT 99
[2024-07-07 20:12] VITALS: BP 120/73; PULSE 84; RESP 18; TEMP 98.5; O2SAT 100
[2024-07-07 20:15] VITALS: PULSE 89; RESP 16; O2SAT 96
[2024-07-07] MEDS: MEROPENEM 1 GM in SODIUM CHLORIDE 0.9% 100 ML IV SCH (23:18)
[2024-07-07] MEDS: DIPHENHYDRAMINE HCL 25 MG CAP PO PRN (23:19)
[2024-07-07] MEDS: TRAMADOL HCL 50 MG TAB PO PRN (23:20)
[2024-07-07 23:43] VITALS: BP 102/80; PULSE 84; RESP 20; TEMP 98.4; O2SAT 95
[2024-07-08 06:22] VITALS: PULSE 96; RESP 20; O2SAT 95
[2024-07-08 06:44] LABS: BASOPHILS # (AUTO) 0.1 (0.0-0.1); BASOPHILS % 0.8 % (0.0-1.0); EOSINOPHILS # (AUTO) 0.1 (0.0-0.4); EOSINOPHILS % 2.1 % (0.0-6.0); HEMOGLOBIN 13.1 g/dL (14.0-18.0); LYMPHOCYTES # (AUTO) 1.5 (1.0-3.2); LYMPHOCYTES % 22.6 % (18.0-39.1); MEAN CORPUSCULAR HEMOGLOBIN 26.8 pg (28-32); MEAN CORPUSCULAR HGB CONC 30.5 g/dL (31-35); MEAN CORPUSCULAR VOLUME 87.9 fL (81-99); MONOCYTES # (AUTO) 0.6 (0.2-0.8); MONOCYTES % 8.7 % (4.4-11.3); NEUTROPHILS # (AUTO) 4.3 (2.1-6.9); NEUTROPHILS % 65.5 % (38.7-80.0); PLATELET COUNT 180 x10e3/uL (140-360); RED BLOOD COUNT 4.89 x10e6/uL (4.3-5.7); RED CELL DISTRIBUTION WIDTH 14.5 % (11.7-14.4); WHITE BLOOD COUNT 6.55 x10e3/uL (4.8-10.8)
[2024-07-08 07:07] LABS: CALCIUM 8.8 mg/dL (8.4-10.2); CREATININE, SERUM 1.14 mg/dL (0.72-1.25)
[2024-07-08 09:12] VITALS: BP 101/67; PULSE 71; RESP 20; TEMP 97.9; O2SAT 97
[2024-07-08] MEDS: PHENAZOPYRIDINE HCL 100 MG TAB PO SCH (09:50)
[2024-07-08] MEDS: BACLOFEN 10 MG TAB PO SCH (09:50)
[2024-07-08] MEDS: SENNA-S TABLET PO SCH (09:50)
[2024-07-08 11:12] LABS: CALCIUM 9.2 mg/dL (8.7-10.2)
[2024-07-08 16:45] VITALS: BP 130/85; PULSE 96; RESP 18; TEMP 98.6; O2SAT 95
[2024-07-08] MEDS: TAMSULOSIN HCL 0.4 MG CAP PO SCH (17:41)
[2024-07-08 18:33] VITALS: PULSE 86; RESP 16; O2SAT 92
[2024-07-08 20:00] VITALS: BP 111/72; PULSE 85; RESP 18; TEMP 98.4; O2SAT 95
[2024-07-09] VITALS (7 sets, daily range): BP systolic 102–123; BP diastolic 66–81; PULSE 80–97; RESP 18–21; TEMP 97.6–98.4; O2SAT 95–98
[2024-07-09 06:04] LABS: BASOPHILS % 0.6 % (0.0-1.0); EOSINOPHILS # (AUTO) 0.2 (0.0-0.4); EOSINOPHILS % 2.6 % (0.0-6.0); HEMATOCRIT 45.6 % (38.2-49.6); HEMOGLOBIN 14.1 g/dL (14.0-18.0); LYMPHOCYTES # (AUTO) 1.7 (1.0-3.2); LYMPHOCYTES % 23.3 % (18.0-39.1); MEAN CORPUSCULAR HEMOGLOBIN 26.9 pg (28-32); MEAN CORPUSCULAR HGB CONC 30.9 g/dL (31-35); MEAN CORPUSCULAR VOLUME 86.9 fL (81-99); MONOCYTES # (AUTO) 0.7 (0.2-0.8); MONOCYTES % 9.2 % (4.4-11.3); NEUTROPHILS # (AUTO) 4.7 (2.1-6.9); PLATELET COUNT 204 x10e3/uL (140-360); RED BLOOD COUNT 5.25 x10e6/uL (4.3-5.7); RED CELL DISTRIBUTION WIDTH 14.3 % (11.7-14.4); WHITE BLOOD COUNT 7.26 x10e3/uL (4.8-10.8)
[2024-07-09 06:33] LABS: ANION GAP 15.8 mmol/L (8-16); CALCIUM 9.3 mg/dL (8.4-10.2); CREATININE, SERUM 1.01 mg/dL (0.72-1.25); POTASSIUM 3.8 mmol/L (3.5-5.1)
[2024-07-09] MEDS: GLIPIZIDE 5 MG TAB PO SCH (09:36)
[2024-07-10 04:00] VITALS: BP 105/69; PULSE 81; RESP 18; TEMP 97.5; O2SAT 96
[2024-07-10 05:46] LABS: BASOPHILS % 0.3 % (0.0-1.0); EOSINOPHILS # (AUTO) 0.2 (0.0-0.4); EOSINOPHILS % 3.3 % (0.0-6.0); HEMATOCRIT 46.3 % (38.2-49.6); HEMOGLOBIN 14.2 g/dL (14.0-18.0); LYMPHOCYTES # (AUTO) 1.6 (1.0-3.2); LYMPHOCYTES % 26.7 % (18.0-39.1); MEAN CORPUSCULAR HEMOGLOBIN 26.7 pg (28-32); MEAN CORPUSCULAR HGB CONC 30.7 g/dL (31-35); MEAN CORPUSCULAR VOLUME 87.2 fL (81-99); MONOCYTES # (AUTO) 0.6 (0.2-0.8); MONOCYTES % 9.3 % (4.4-11.3); NEUTROPHILS # (AUTO) 3.6 (2.1-6.9); NEUTROPHILS % 60.1 % (38.7-80.0); PLATELET COUNT 192 x10e3/uL (140-360); RED BLOOD COUNT 5.31 x10e6/uL (4.3-5.7); RED CELL DISTRIBUTION WIDTH 14.1 % (11.7-14.4); WHITE BLOOD COUNT 6.02 x10e3/uL (4.8-10.8)
[2024-07-10 06:07] LABS: ANION GAP 16.3 mmol/L (8-16); CALCIUM 9.2 mg/dL (8.4-10.2); CREATININE, SERUM 1.01 mg/dL (0.72-1.25); POTASSIUM 4.3 mmol/L (3.5-5.1)
[2024-07-10 07:30] VITALS: PULSE 83; RESP 18; O2SAT 98
[2024-07-10 09:06] VITALS: BP 116/61; PULSE 83; RESP 18; TEMP 98.6; O2SAT 100
[2024-07-10 09:10] VITALS: BP 116/61; PULSE 83; RESP 18; TEMP 98.6; O2SAT 100
[2024-07-10 12:20] VITALS: BP 132/97; PULSE 99; RESP 19; TEMP 98.5; O2SAT 96
[2024-07-10] MEDS ORDERED: ONDANSETRON HCL 4 MG ORAL DISINTEGRATING TAB PO PRN (12:30)
[2024-07-10 16:05] VITALS: BP 121/81; PULSE 103; RESP 20; TEMP 98; O2SAT 98
== END 2024-07-10 18:37 | disposition home or self-care (01) | DRG 659 ==
LOC: OR 10:16 → PACU V 14:16 → MED/SURG2 14:45
PROVIDERS: ADMIT Internal Medicine; ATTEND Internal Medicine
PROC: BT141ZZ Fluoroscopy of Kidneys, Ureters and Bladder using Low Osmolar Contrast (ICD-10-PCS; 2024-07-07)
PROC: 0T788DZ Dilation of Bilateral Ureters with Intraluminal Device, Via Natural or Artificial Opening Endoscopic (ICD-10-PCS; principal; 2024-07-07 12:51)
PROC: 0TC68ZZ Extirpation of Matter from Right Ureter, Via Natural or Artificial Opening Endoscopic (ICD-10-PCS; 2024-07-07 12:51)
DX: N13.6 Pyonephrosis (principal); G80.0 Spastic quadriplegic cerebral palsy; Z16.12 Extended spectrum beta lactamase (ESBL) resistance; Z16.24 Resistance to multiple antibiotics; E11.9 Type 2 diabetes mellitus without complications; N32.81 Overactive bladder; D64.9 Anemia, unspecified; R31.9 Hematuria, unspecified; Z79.84 Long term (current) use of oral hypoglycemic drugs; Z96.0 Presence of urogenital implants
CPT/HCPCS: 36415; 74018; 74420; 80048; 80053; 82948; 83970; 84550; 85025; 87086; 87186; 88300; 93005; 94799; C1758; C1766; C1769; C2617; J1200; J1580; J2003; J2185; J2405; J7030; J7050

== ENCOUNTER → 2024-09-29 | Day surgery (SDC) | payer MEDICARE, OTHER ==
[~2024-09-29] MED LIST changes: +EPHEDRINE SULFATE INJ 50 MG/ML VIAL ONE; +FENTANYL CITRATE/PF 100MCG/2 ML INJ ONE; +GLYCOPYRROLATE INJ 0.2 MG/ML VIAL ONE; +LIDOCAINE HCL 2% LOCAL INJ 5 ML SDV VIAL INJ ONE; +METOCLOPRAMIDE HCL 10 MG/2ML VIAL ONE; +MIDAZOLAM HCL 2 MG/2 ML VIAL ONE; +ONDANSETRON HCL INJ 2MG/ML 2ML 2 MG/ML VIAL ONE; +PHENYLEPHRINE HCL 1% 10 MG/ML VIAL ONE; +PROPOFOL IV EMULSION 10 MG/ML 20 ML VIAL ONE; +SEVOFLURANE INHAL SOLN 250 ML PEN BTL ONE; +VESICARE5 MG PO
[2024-09-29 10:39] LABS: BASOPHILS % 0.7 % (0.0-1.0); EOSINOPHILS # (AUTO) 0.1 (0.0-0.4); EOSINOPHILS % 1.6 % (0.0-6.0); HEMATOCRIT 44.3 % (38.2-49.6); LYMPHOCYTES # (AUTO) 1.5 (1.0-3.2); LYMPHOCYTES % 24.1 % (18.0-39.1); MEAN CORPUSCULAR HEMOGLOBIN 25.8 pg (28-32); MEAN CORPUSCULAR HGB CONC 31.6 g/dL (31-35); MEAN CORPUSCULAR VOLUME 81.7 fL (81-99); MONOCYTES # (AUTO) 0.3 (0.2-0.8); MONOCYTES % 5.6 % (4.4-11.3); NEUTROPHILS # (AUTO) 4.1 (2.1-6.9); NEUTROPHILS % 67.7 % (38.7-80.0); PLATELET COUNT 229 x10e3/uL (140-360); RED BLOOD COUNT 5.42 x10e6/uL (4.3-5.7); RED CELL DISTRIBUTION WIDTH 14.2 % (11.7-14.4); WHITE BLOOD COUNT 6.09 x10e3/uL (4.8-10.8)
[2024-09-29] MEDS: LACTATED RINGER'S 1,000 ML ONE (10:46)
[2024-09-29] MEDS: GENTAMICIN 80MG/NS 100 ML 200 ML IV ONE (10:50)
[2024-09-29] MEDS: MEROPENEM 1 GM VIAL ONE (10:51)
[2024-09-29 11:05] LABS: ANION GAP 14.9 mmol/L (8-16); CALCIUM 9.5 mg/dL (8.4-10.2); CREATININE, SERUM 1.1 mg/dL (0.72-1.25); POTASSIUM 3.9 mmol/L (3.5-5.1)
[2024-09-29 13:50] VITALS: TEMP 97.9
[2024-09-29] MEDS: PHENAZOPYRIDINE HCL 100 MG TAB ONE (14:05)
[2024-09-29 16:15] VITALS: BP 125/79; PULSE 90; RESP 18; O2SAT 98
[2024-09-29] MEDS: FENTANYL CITRATE/PF 100MCG/2 ML INJ IV ONE (16:15)
== END | disposition home or self-care (01) ==
LOC: OR 09:32
PROVIDERS: ATTEND Urology
DX: N20.0 Calculus of kidney (principal); Z46.6 Encounter for fitting and adjustment of urinary device; N13.30 Unspecified hydronephrosis; N32.89 Other specified disorders of bladder; N39.0 Urinary tract infection, site not specified; N40.0 Benign prostatic hyperplasia without lower urinary tract symptoms; E11.9 Type 2 diabetes mellitus without complications; G80.9 Cerebral palsy, unspecified; G83.89 Other specified paralytic syndromes; Z88.6 Allergy status to analgesic agent; Z88.4 Allergy status to anesthetic agent; Z88.0 Allergy status to penicillin; Z79.84 Long term (current) use of oral hypoglycemic drugs; Z79.899 Other long term (current) drug therapy
CPT/HCPCS: 36415; 52352; 74018; 74420; 80048; 84550; 85025; 87086; 87186; 88300; 88305; C1766; C1769; J1580; J2003; J2185; J2371; J2405; J2704; J2765; J3010; J7121; 88304; J2250